=== PATIENT | male | born 1960 | race Caucasian/White ===

== ENCOUNTER 2017-05-14 18:31 | Emergency (ER) | payer MEDICAID ==
[~2017-05-14] VITALS: Ht 162.6 cm; Wt 50.0 kg
[2017-05-14] MEDS ORDERED: PLEASE ENTER ALLERGIES MC SCH (19:00)
[2017-05-14] MEDS ORDERED: IBUPROFEN 200 MG TABLET PO ONE (19:00)
[2017-05-14] MEDS ORDERED: PLEASE ENTER HEIGHT AND WEIGHT MC SCH (19:00)
[2017-05-14] MEDS ORDERED: IBUPROFEN 200 MG TABLET ONE (19:21)
[2017-05-14 19:39] VITALS: BP 121/86
== END 2017-05-14 21:04 | disposition home or self-care (01) ==
LOC: ED 20:44
DX: S70.11XA Contusion of right thigh, initial encounter (principal); I10 Essential (primary) hypertension; E11.9 Type 2 diabetes mellitus without complications; Y93.89 Activity, other specified; V98.8XXA Other specified transport accidents, initial encounter; Y99.2 Volunteer activity; Y92.89 Other specified places as the place of occurrence of the external cause; Y99.8 Other external cause status; Z59.0 Homelessness
CPT/HCPCS: 72170; 99284

== ENCOUNTER 2020-01-01 14:43 | Emergency (ER) | payer MEDICAID ==
[~2020-01-01] VITALS: Ht 162.6 cm; Wt 50.0 kg
--- NOTE | 2020-01-01 15:32 | NUR ---
PT TO ROOM FROM JOHN RUIZ.
--- NOTE | 2020-01-01 16:02 | NUR ---
PT LAYING ON GURNEY COMFORTABLY WITH TV ON, REFUSING BP & C-COLLAR- PA AWARE, AKING FOR FOOD, RESPONDS APPROP TO STAFF, NAD, COMFORT MEASURES PROVIDED, CALL LIGHT WITHIN REACH.
[2020-01-01 16:12] VITALS: BP 114/80
[2020-01-01 16:42] LABS: ALBUMIN 3.7 g/dL (3.4-5.0); ANION GAP 15 mmol/L (5-15); BASOPHILS % (AUTO) 2 % (0-1); CALCIUM 8.3 mg/dL (8.5-10.1); CHLORIDE 99 mmol/L (98-107); EOSINOPHILS % (AUTO) 0 % (1-7); LYMPHOCYTES % (AUTO) 34 % (22-44); MEAN CORPUSCULAR HEMOGLOBIN 28.4 pg (27.5-34.5); MEAN CORPUSCULAR HGB CONC 32.7 g/dL (33.2-36.2); MEAN PLATELET VOLUME 6.2 fL (7.4-10.4); MONOCYTES % (AUTO) 7 % (2-9); NEUTROPHILS % (AUTO) 57 % (42-75); PLATELET COUNT 411 x10^3/uL (130-400); RED BLOOD COUNT 3.95 x10^6/uL (4.38-5.82); RED CELL DISTRIBUTION WIDTH 19.9 % (9.4-14.8)
[2020-01-01 16:47] LABS: ALANINE AMINOTRANSFERASE 54 U/L (12-78); ALKALINE PHOSPHATASE 82 U/L (45-117); BILIRUBIN,TOTAL 0.3 mg/dL (0.2-1.0); CREATININE 0.62 mg/dL (0.7-1.3); TOTAL PROTEIN 7.8 g/dL (6.4-8.2)
--- NOTE | 2020-01-01 17:05 | NUR ---
PT UPRIGHT ON GURNEY WITH TV ON, FOOD TRAY GIVEN, RESPONDS APPROP TO STAFF, NAD, COMFORT MEASURES PROVIDED, CALL LIGHT WITHIN REACH.
[2020-01-01 17:32] LABS: ANISOCYTOSIS 1+; MD MORPH REVIEW ONLY; OVALOCYTES 1+
[2020-01-01 17:33] LABS: <PLATELET ESTIMATE> INCREASED; <PLT MORPHOLOGY> NORMAL PLT MORPH; POLYCHROMASIA 1+
--- NOTE | 2020-01-01 18:00 | NUR ---
PT RESTING ON GURNEY WITH EYES CLOSED & TV ON, RESPONDS APPROP TO STAFF, NAD, COMFORT MEASURES PROVIDED, CALL LIGHT WITHIN REACH. [employer] CALLED TO TRY TO FIND CLOTHING FOR PT TO DC IN- WILL DELIVER IF ANY.
--- NOTE | 2020-01-01 19:07 | NUR ---
REPORT GIVEN TO MANISH
--- NOTE | 2020-01-01 19:08 | NUR ---
Report received from MIKKI Leavitt. This RN to assume care. FS to be rechecked. Awaiting clothes for patient.
[2020-01-01] MEDS ORDERED: DEXTROSE 50%, 50ML SYRINGE ONE (19:59)
[2020-01-01] MEDS ORDERED: DEXTROSE 50%, 50ML SYRINGE IVPush ONE (20:00)
[2020-01-01] MEDS ORDERED: SODIUM CHLORIDE FLUSH 10ML SYR IVF ONE (20:00)
--- NOTE | 2020-01-01 20:09 | NUR ---
Patient ate entire meal tray; FS 74 afterward. ERP to order D50. Patient refusing IV with D50. Patient to be d/c.
--- NOTE | 2020-01-01 20:37 | NUR ---
Provided shorts to patient. Discharge instructions given. All questions and concerns addressed. Patient ambulatory with a steady gait. Belongings with patient.
== END 2020-01-01 20:38 | disposition home or self-care (01) ==
LOC: ED 16:52
DX: E11.65 Type 2 diabetes mellitus with hyperglycemia (principal); F10.129 Alcohol abuse with intoxication, unspecified; M54.2 Cervicalgia; Y90.9 Presence of alcohol in blood, level not specified; I10 Essential (primary) hypertension; F17.200 Nicotine dependence, unspecified, uncomplicated
CPT/HCPCS: 36415; 70450; 72125; 80053; 80307; 82962; 83690; 85025; 99285

== ENCOUNTER 2020-01-24 13:27 | Inpatient (IN) | payer MEDICAID ==
[~2020-01-24] VITALS: Ht 160 cm; Wt 62.4 kg
--- NOTE | 2020-01-24 13:38 | NUR ---
PATIENT CURRENTLY IN DECON ROOM. PATIENT BIB [facility] WITH CHIEF C/O "FEELING SICK." PER EMS PATIENT WAS PICKED UP FROM HIS APARTMENT ON [address] [facility], PATIENT IS BEING EVICTED PER EMS, AND WHEN THEY ENTERED HIS APARTMENT THERE WAS VOMIT AND FECES EVERYWHERE. [facility]. PATIENT IS A&OX4, HR 120, 99% SPO2, PATIENT REFUSED TO HAVE BP TAKEN.
[2020-01-24] MEDS ORDERED: ONDANSETRON ODT 4 MG PO ONE (15:13)
[2020-01-24] MEDS ORDERED: ONDANSETRON ODT 4 MG ONE (15:14)
--- NOTE | 2020-01-24 15:33 | NUR ---
PATIENT MEDICATED PER [facility], PATIENT STATES HE WANTS TO STOP DRINKING AND GET HELP. NADN, PATIENT CONNECTED TO ARCHAEOLOGY PROFESSOR, SIDE RAILS UP X2, CALL LIGHT WITHIN REACH.
--- NOTE | 2020-01-24 17:21 | NUR ---
PATIENT HAD LOOSE, WATERY BOWEL MOVEMENT, CLEANED PATIENT UP. NADN, CONNECTED TO CARDICA MONITOR, SIDE RAILS UP X2, CALL LIGHT WITHIN REACH.
--- NOTE | 2020-01-24 17:44 | NUR ---
SHIPS OR BARGES LOADER AT BEDSIDE.
[2020-01-24 18:08] LABS: ALBUMIN 3.4 g/dL (3.4-5.0); ANION GAP 22 mmol/L (5-15); CALCIUM 7.8 mg/dL (8.5-10.1); CHLORIDE 89 mmol/L (98-107)
[2020-01-24 18:11] LABS: ALANINE AMINOTRANSFERASE 25 U/L (12-78); ALKALINE PHOSPHATASE 104 U/L (45-117); BILIRUBIN,TOTAL 1.1 mg/dL (0.2-1.0); CREATININE 0.51 mg/dL (0.7-1.3); TOTAL PROTEIN 7.2 g/dL (6.4-8.2)
--- NOTE | 2020-01-24 18:19 | NUR ---
PATIENT SITTING UP IN GURNEY, SMALL AMOUNT OF WATER PROVIDED TO PATIENT, CONNECTED TO VOCATIONAL EVALUATOR, NADN, SIDE RAILS UP X2, CALL LIGHT WITHIN REACH.
[2020-01-24 18:53] LABS: BASOPHILS % (AUTO) 1 % (0-1); EOSINOPHILS % (AUTO) 0 % (1-7); LYMPHOCYTES % (AUTO) 9 % (22-44); MEAN CORPUSCULAR HGB CONC 32.9 g/dL (33.2-36.2); MEAN PLATELET VOLUME 6.7 fL (7.4-10.4); MONOCYTES % (AUTO) 12 % (2-9); NEUTROPHILS % (AUTO) 79 % (42-75); PLATELET COUNT 136 x10^3/uL (130-400); RED BLOOD COUNT 4.31 x10^6/uL (4.38-5.82); RED CELL DISTRIBUTION WIDTH 20.7 % (9.4-14.8)
[2020-01-24 18:54] LABS: MD NO
--- NOTE | 2020-01-24 19:43 | NUR ---
PATIENT SITTING UP IN GURNEY, CONNECTED TO LICENSED MASS REAL ESTATE APPRAISER, NADN, VSS, SIDE RAILS UP X2, CALL LIGHT WITHIN REACH.
--- NOTE | 2020-01-24 21:32 | NUR ---
PATIENT REFUSING TO WALK AT THIS TIME, STATING "I'M TOO WEAK."
--- NOTE | 2020-01-24 21:40 | NUR ---
ERMD AT BEDSIDE TO DISCUSS POC.
[2020-01-24] MEDS ORDERED: ONDANSETRON 2MG/ML, 2ML IVPush ONE (22:30)
[2020-01-24] MEDS ORDERED: FAMOTIDINE 20 MG/2 ML IV ONE (22:30)
[2020-01-24] MEDS ORDERED: SODIUM CHLORIDE 0.9% 1,000ML IVBOLUS ONE (22:30)
[2020-01-24] MEDS ORDERED: SODIUM CHLORIDE FLUSH 10ML SYR IVF ONE (22:30)
[2020-01-24] MEDS ORDERED: POTASSIUM CHLORIDE 20 MEQ TAB.ER.PRT ONE (22:58)
[2020-01-24] MEDS ORDERED: ONDANSETRON 2MG/ML, 2ML ONE (22:58)
[2020-01-24] MEDS ORDERED: FAMOTIDINE 20 MG/2 ML ONE (22:58)
[2020-01-24] MEDS ORDERED: LABETALOL 5MG/ML, 20ML IVPush PRN (23:00)
[2020-01-24] MEDS ORDERED: POTASSIUM CHLORIDE 20 MEQ TAB.ER.PRT PO ONE (23:00)
[2020-01-24] MEDS ORDERED: POTASSIUM CHLORIDE 20 MEQ, MAGNESIUM SULFATE 1 GM, THIAMINE 200 MG, FOLIC ACID 1 MG, MV... IV SCH (23:00)
[2020-01-24] MEDS ORDERED: LORazepam 2 MG/ML, 1ML IV PRN ×2 (23:00)
[2020-01-24] MEDS ORDERED: HEPARIN 5,000 UNITS/ML, 1ML ONE (23:11)
[2020-01-24] MEDS ORDERED: LORazepam 2 MG/ML, 1ML ONE (23:13)
[2020-01-24] MEDS: LORazepam 2 MG/ML, 1ML IV PRN (23:14)
[2020-01-24] MEDS: HEPARIN 5,000 UNITS/ML, 1ML SQ SCH (23:14)
--- NOTE | 2020-01-24 23:37 | NUR ---
PATIENT MEDICATED PER [facility], PATIENT SOILED, CLEANED UP AND WOUND DRESSING APPLIED TO LEFT BUTTOCKS. NADN, VSS, SIDE RAILS UP X2, CALL LIGHT WITHIN REACH.
[2020-01-24 23:45] LABS: ALANINE AMINOTRANSFERASE 24 U/L (12-78); ALBUMIN 3.1 g/dL (3.4-5.0); ANION GAP 19 mmol/L (5-15); CALCIUM 7.3 mg/dL (8.5-10.1); CHLORIDE 90 mmol/L (98-107); CREATININE 0.47 mg/dL (0.7-1.3)
[2020-01-24 23:47] LABS: ALKALINE PHOSPHATASE 93 U/L (45-117); BILIRUBIN,TOTAL 1.1 mg/dL (0.2-1.0); TOTAL PROTEIN 6.7 g/dL (6.4-8.2)
[2020-01-24 23:49] LABS: BASOPHILS % (AUTO) 1 % (0-1); EOSINOPHILS % (AUTO) 0 % (1-7); LYMPHOCYTES % (AUTO) 12 % (22-44); MEAN CORPUSCULAR HEMOGLOBIN 28.1 pg (27.5-34.5); MEAN CORPUSCULAR HGB CONC 33.2 g/dL (33.2-36.2); MONOCYTES % (AUTO) 13 % (2-9); NEUTROPHILS % (AUTO) 74 % (42-75); PLATELET COUNT 134 x10^3/uL (130-400); RED BLOOD COUNT 3.87 x10^6/uL (4.38-5.82); RED CELL DISTRIBUTION WIDTH 20.8 % (9.4-14.8)
--- NOTE | 2020-01-24 23:56 | NUR ---
REPORT GIVEN TO MIKKI CORREA FOR TRANSFER OF PATIENT CARE.
[2020-01-24 23:57] LABS: INTERNATIONAL NORMALIZED RATIO 1.11 (0.93-1.1); PROTHROMBIN TIME 11.8 Seconds (9.6-11.5)
[2020-01-24 23:58] LABS: MD NO
--- NOTE | 2020-01-25 00:58 | NUR ---
PT RESTING WITH EYES CLOSED, NAD NOTED AT THIS TIME, WILL CONTINUE TO MONITOR.
--- NOTE | 2020-01-25 02:04 | NUR ---
REPORT GIVEN TO MIKKI WALKER.
[2020-01-25 04:31] VITALS: BP 114/76
[2020-01-25] MEDS: LORazepam 2 MG/ML, 1ML IV PRN ×3 (06:22→20:56)
[2020-01-25] MEDS: HEPARIN 5,000 UNITS/ML, 1ML SQ SCH (06:22)
[2020-01-25 06:23] LABS: BASOPHILS % (AUTO) 1 % (0-1); EOSINOPHILS % (AUTO) 0 % (1-7); LYMPHOCYTES % (AUTO) 19 % (22-44); MEAN CORPUSCULAR HEMOGLOBIN 28.2 pg (27.5-34.5); MEAN CORPUSCULAR HGB CONC 32.7 g/dL (33.2-36.2); MEAN PLATELET VOLUME 7.1 fL (7.4-10.4); MONOCYTES % (AUTO) 13 % (2-9); NEUTROPHILS % (AUTO) 66 % (42-75); PLATELET COUNT 124 x10^3/uL (130-400); RED CELL DISTRIBUTION WIDTH 20.8 % (9.4-14.8)
[2020-01-25 06:24] LABS: MD NO
[2020-01-25 06:26] LABS: ALBUMIN 2.9 g/dL (3.4-5.0); ANION GAP 11 mmol/L (5-15); CALCIUM 7.2 mg/dL (8.5-10.1); CHLORIDE 97 mmol/L (98-107)
[2020-01-25 06:30] LABS: ALANINE AMINOTRANSFERASE 20 U/L (12-78); ALKALINE PHOSPHATASE 84 U/L (45-117); BILIRUBIN,TOTAL 0.7 mg/dL (0.2-1.0); CREATININE 0.76 mg/dL (0.7-1.3); TOTAL PROTEIN 6.2 g/dL (6.4-8.2)
[2020-01-25 07:56] VITALS: BP 112/75
[2020-01-25] MEDS ORDERED: MAGNESIUM SULFATE PMX 2GM/50ML 50 ML IV ONE ×2 (09:30→19:00)
[2020-01-25] MEDS ORDERED: THIAMINE 200 MG, MVI ADULT 10 ML, FOLIC ACID 1 MG in D5%-0.9% NACL 1,000 ML IV SCH ×2 (09:30→23:00)
[2020-01-25] MEDS ORDERED: MAGNESIUM SULFATE PMX 4GM/100M 100 ML IVPB ONE (10:00)
[2020-01-25 12:02] LABS: ANION GAP 11 mmol/L (5-15); CALCIUM 7.6 mg/dL (8.5-10.1); CHLORIDE 97 mmol/L (98-107); CREATININE 0.72 mg/dL (0.7-1.3)
[2020-01-25 12:15] VITALS: BP 139/70
[2020-01-25] MEDS: CHLORDIAZEPOXIDE 25 MG CAPSULE PO SCH ×3 (12:23→22:45)
[2020-01-25] MEDS: ENOXAPARIN 40 MG/0.4 ML SQ SCH (12:23)
[2020-01-25] MEDS: ONDANSETRON 2MG/ML, 2ML IVPush PRN ×2 (13:44→20:56)
[2020-01-25 20:10] VITALS: BP 87/62
[2020-01-25] MEDS: MAGNESIUM OXIDE 400 MG TABLET PO SCH (20:43)
[2020-01-26] VITALS (7 sets, daily range): BP systolic 93–122; BP diastolic 48–78
[2020-01-26] MEDS: LORazepam 2 MG/ML, 1ML IV PRN ×5 (00:03→23:19)
[2020-01-26] MEDS ORDERED: SODIUM CHLORIDE 0.9%, 500ML IVBOLUS ONE (01:00)
[2020-01-26 03:04] LABS: BASOPHILS % (AUTO) 0 % (0-1); EOSINOPHILS % (AUTO) 0 % (1-7); LYMPHOCYTES % (AUTO) 8 % (22-44); MEAN CORPUSCULAR HEMOGLOBIN 28.1 pg (27.5-34.5); MEAN CORPUSCULAR HGB CONC 33.1 g/dL (33.2-36.2); MEAN PLATELET VOLUME 7.3 fL (7.4-10.4); MONOCYTES % (AUTO) 4 % (2-9); NEUTROPHILS % (AUTO) 87 % (42-75); PLATELET COUNT 101 x10^3/uL (130-400); RED CELL DISTRIBUTION WIDTH 20.5 % (9.4-14.8)
[2020-01-26 03:11] LABS: ALANINE AMINOTRANSFERASE 17 U/L (12-78); ALBUMIN 2.5 g/dL (3.4-5.0); ANION GAP 6 mmol/L (5-15); CALCIUM 7.2 mg/dL (8.5-10.1); CHLORIDE 98 mmol/L (98-107); CREATININE 0.47 mg/dL (0.7-1.3)
[2020-01-26 03:13] LABS: ALKALINE PHOSPHATASE 71 U/L (45-117); BILIRUBIN,TOTAL 0.4 mg/dL (0.2-1.0); TOTAL PROTEIN 5.5 g/dL (6.4-8.2)
[2020-01-26 03:29] LABS: MD NO
[2020-01-26 03:53] LABS: MICROSCOPIC NOT IND
[2020-01-26] MEDS ORDERED: POTASSIUM CHLORIDE 40 MEQ in SODIUM CHLORIDE 0.9% 500 ML IV ONE (07:00)
[2020-01-26] MEDS: ENOXAPARIN 40 MG/0.4 ML SQ SCH (09:38)
[2020-01-26] MEDS: MAGNESIUM OXIDE 400 MG TABLET PO SCH ×2 (09:39→21:10)
[2020-01-26] MEDS: K-PHOS NEUTRAL 250MG TAB PO SCH ×3 (10:00→21:09)
[2020-01-26] MEDS ORDERED: POTASSIUM CHLORIDE 20 MEQ TAB.ER.PRT PO ONE (10:00)
[2020-01-26] MEDS: ONDANSETRON 2MG/ML, 2ML IVPush PRN ×2 (13:43→20:10)
[2020-01-26 17:13] LABS: BASOPHILS % (AUTO) 1 % (0-1); EOSINOPHILS % (AUTO) 0 % (1-7); LYMPHOCYTES % (AUTO) 9 % (22-44); MEAN CORPUSCULAR HEMOGLOBIN 28.4 pg (27.5-34.5); MEAN CORPUSCULAR HGB CONC 32.5 g/dL (33.2-36.2); MEAN PLATELET VOLUME 7.4 fL (7.4-10.4); MONOCYTES % (AUTO) 5 % (2-9); NEUTROPHILS % (AUTO) 85 % (42-75); PLATELET COUNT 105 x10^3/uL (130-400); RED BLOOD COUNT 2.86 x10^6/uL (4.38-5.82); RED CELL DISTRIBUTION WIDTH 20.7 % (9.4-14.8)
[2020-01-26 17:16] LABS: MD NO
[2020-01-26 17:21] LABS: CALCIUM 7.5 mg/dL (8.5-10.1); CREATININE 0.35 mg/dL (0.7-1.3)
[2020-01-26 17:30] LABS: ANION GAP 4 mmol/L (5-15); CHLORIDE 103 mmol/L (98-107)
[2020-01-26] MEDS ORDERED: FUROSEMIDE 20 MG/2 ML IV ONE ×2 (18:30→21:30)
[2020-01-26] MEDS ORDERED: GUAIFENESIN/DM 200-20MG, 10ML UDC PO PRN (23:30)
[2020-01-27 00:49] VITALS: BP 101/65
[2020-01-27] MEDS ORDERED: AZITHROMYCIN 500 MG in SODIUM CHLORIDE 0.9% 250 ML IV SCH (01:00)
[2020-01-27] MEDS ORDERED: CEFTRIAXONE PMX 1GM/50ML 50 ML IV SCH (01:00)
[2020-01-27] MEDS: LORazepam 2 MG/ML, 1ML IV PRN ×2 (01:39→03:47)
[2020-01-27 05:28] LABS: ANION GAP 5 mmol/L (5-15); CALCIUM 8.1 mg/dL (8.5-10.1); CHLORIDE 99 mmol/L (98-107); CREATININE 0.51 mg/dL (0.7-1.3)
[2020-01-27 05:41] LABS: MEAN CORPUSCULAR HGB CONC 33.3 g/dL (33.2-36.2); MEAN PLATELET VOLUME 7.7 fL (7.4-10.4); PLATELET COUNT 124 x10^3/uL (130-400); RED BLOOD COUNT 2.81 x10^6/uL (4.38-5.82); RED CELL DISTRIBUTION WIDTH 20.5 % (9.4-14.8)
[2020-01-27 06:26] LABS: MD YES
[2020-01-27 06:31] LABS: BAND#(MANUAL) 0.83 x10^3/uL; BANDS%(MANUAL) 36 % (0-7); LYMPH#(MANUAL) 0.53 x10^3/uL (1-3.4); LYMPHS% (MANUAL) 23 % (22-44); METAMYELOCYTES# (MANUAL) 0.12 x10^3/uL (0-0); METAMYELOCYTES% (MANUAL) 5 % (0-1); MONOS#(MANUAL) 0.14 x10^3/uL (0.3-2.7); MONOS% (MANUAL) 6 % (2-9); SEG#(MANUAL) 0.69 x10^3/uL (1.8-6.8); SEGS% (MANUAL) 30 % (42-75)
[2020-01-27 06:35] LABS: ANISOCYTOSIS 1+; OVALOCYTES 1+
[2020-01-27 06:36] LABS: POLYCHROMASIA 1+
[2020-01-27 06:37] LABS: <PLATELET ESTIMATE> DECREASED; <PLT MORPHOLOGY> NORMAL PLT MORPH; TOXIC GRAN 1+
[2020-01-27 08:16] VITALS: BP 97/61
[2020-01-27] MEDS: THIAMINE 100MG TABLET PO SCH (09:00)
[2020-01-27] MEDS: K-PHOS NEUTRAL 250MG TAB PO SCH ×3 (09:00→21:17)
[2020-01-27] MEDS: MAGNESIUM OXIDE 400 MG TABLET PO SCH ×2 (09:00→21:17)
[2020-01-27] MEDS: ENOXAPARIN 40 MG/0.4 ML SQ SCH (10:45)
[2020-01-27 12:57] VITALS: BP 98/68
[2020-01-27] MEDS ORDERED: FUROSEMIDE 40 MG/4 ML IV ONE (15:00)
[2020-01-27 15:05] LABS: MICROSCOPIC INDICATED
[2020-01-27 15:15] VITALS: BP 92/61
[2020-01-27] MEDS: ERTAPENEM 1 GM in SODIUM CHLORIDE 0.9% 50 ML IV SCH (16:21)
[2020-01-27] MEDS ORDERED: SODIUM CHLORIDE 0.9%, 250ML IVBOLUS ONE (19:30)
[2020-01-27 20:48] VITALS: BP 87/45
[2020-01-27] MEDS: SODIUM CHLORIDE 0.9% 500 ML IV SCH ×5 (22:25→23:34)
[2020-01-27 22:27] VITALS: BP 91/48
[2020-01-28] MEDS: SODIUM CHLORIDE 0.9% 500 ML IV SCH (00:05)
[2020-01-28 02:30] VITALS: BP 90/46
[2020-01-28 05:53] LABS: MEAN CORPUSCULAR HEMOGLOBIN 28.8 pg (27.5-34.5); MEAN PLATELET VOLUME 7.6 fL (7.4-10.4); PLATELET COUNT 128 x10^3/uL (130-400); RED BLOOD COUNT 2.57 x10^6/uL (4.38-5.82); RED CELL DISTRIBUTION WIDTH 21.1 % (9.4-14.8)
[2020-01-28 05:55] LABS: ANION GAP 5 mmol/L (5-15); CALCIUM 7.8 mg/dL (8.5-10.1); CHLORIDE 102 mmol/L (98-107)
[2020-01-28 05:59] LABS: ALANINE AMINOTRANSFERASE 12 U/L (12-78); ALKALINE PHOSPHATASE 55 U/L (45-117); BILIRUBIN,TOTAL 0.7 mg/dL (0.2-1.0); CREATININE 0.38 mg/dL (0.7-1.3); TOTAL PROTEIN 5.5 g/dL (6.4-8.2)
[2020-01-28 07:13] VITALS: BP 83/58
[2020-01-28] MEDS: methylPREDNISolone SOD SUCC 40 MG/ML IV SCH ×3 (07:30→20:34)
[2020-01-28] MEDS ORDERED: POTASSIUM CHLORIDE 40 MEQ in SODIUM CHLORIDE 0.9% 500 ML IV ONE (07:30)
[2020-01-28 08:22] LABS: MD YES
[2020-01-28 08:24] LABS: BASOS#(MANUAL) 0.06 x10^3/uL (0-0.1); BASOS% (MANUAL) 1 % (0-1); LYMPH#(MANUAL) 0.54 x10^3/uL (1-3.4); LYMPHS% (MANUAL) 9 % (22-44); MONOS#(MANUAL) 0.72 x10^3/uL (0.3-2.7); MONOS% (MANUAL) 12 % (2-9); MYELOCYTES# (MANUAL) 0.06 x10^3/uL (0-0); MYELOCYTES% (MANUAL) 1 % (0-0)
[2020-01-28 08:25] LABS: <PLATELET ESTIMATE> DECREASED; <PLT MORPHOLOGY> NORMAL PLT MORPH; ANISOCYTOSIS 1+; BAND#(MANUAL) 1.32 x10^3/uL; BANDS%(MANUAL) 22 % (0-7); OVALOCYTES 1+; POLYCHROMASIA 1+; SEGS% (MANUAL) 55 % (42-75); TOXIC GRAN 1+
[2020-01-28] MEDS: THIAMINE 100MG TABLET PO SCH (10:29)
[2020-01-28] MEDS: K-PHOS NEUTRAL 250MG TAB PO SCH ×3 (10:29→20:35)
[2020-01-28] MEDS: MAGNESIUM OXIDE 400 MG TABLET PO SCH ×2 (10:29→20:35)
[2020-01-28] MEDS: ONDANSETRON 2MG/ML, 2ML IVPush PRN ×2 (10:30→20:35)
[2020-01-28] MEDS: ENOXAPARIN 40 MG/0.4 ML SQ SCH (11:00)
[2020-01-28 12:12] VITALS: BP 94/65
[2020-01-28] MEDS: ERTAPENEM 1 GM in SODIUM CHLORIDE 0.9% 50 ML IV SCH (15:50)
[2020-01-28 18:57] VITALS: BP 95/64
[2020-01-28 23:01] VITALS: BP 102/69
[2020-01-29 00:38] VITALS: BP 98/60
[2020-01-29] MEDS: PANTOPRAZOLE 40 MG IV IVPush SCH ×2 (00:45→12:32)
[2020-01-29] MEDS: methylPREDNISolone SOD SUCC 40 MG/ML IV SCH ×4 (00:45→21:23)
[2020-01-29 06:50] VITALS: BP 102/67
[2020-01-29 07:21] LABS: MEAN CORPUSCULAR HEMOGLOBIN 28.8 pg (27.5-34.5); MEAN CORPUSCULAR HGB CONC 33.4 g/dL (33.2-36.2); MEAN PLATELET VOLUME 7.1 fL (7.4-10.4); PLATELET COUNT 177 x10^3/uL (130-400); RED CELL DISTRIBUTION WIDTH 20.8 % (9.4-14.8)
[2020-01-29 07:31] LABS: ALANINE AMINOTRANSFERASE 16 U/L (12-78); ALBUMIN 2.1 g/dL (3.4-5.0); ANION GAP 7 mmol/L (5-15); CALCIUM 8.2 mg/dL (8.5-10.1); CHLORIDE 97 mmol/L (98-107)
[2020-01-29 07:34] LABS: ALKALINE PHOSPHATASE 56 U/L (45-117); BILIRUBIN,TOTAL 0.4 mg/dL (0.2-1.0); CREATININE 0.44 mg/dL (0.7-1.3); TOTAL PROTEIN 6.2 g/dL (6.4-8.2)
[2020-01-29] MEDS: K-PHOS NEUTRAL 250MG TAB PO SCH ×3 (08:01→21:23)
[2020-01-29] MEDS: MAGNESIUM OXIDE 400 MG TABLET PO SCH ×2 (08:01→21:23)
[2020-01-29] MEDS: THIAMINE 100MG TABLET PO SCH (08:01)
[2020-01-29 08:48] LABS: MD YES
[2020-01-29 08:51] LABS: BAND#(MANUAL) 0.15 x10^3/uL; BANDS%(MANUAL) 5 % (0-7); LYMPH#(MANUAL) 0.39 x10^3/uL (1-3.4); LYMPHS% (MANUAL) 13 % (22-44); MONOS#(MANUAL) 0.06 x10^3/uL (0.3-2.7); MONOS% (MANUAL) 2 % (2-9); MYELOCYTES# (MANUAL) 0.03 x10^3/uL (0-0); MYELOCYTES% (MANUAL) 1 % (0-0); REACTIVE LYMPHS # (MANUAL) 0.03 x10^3/uL (0-0); REACTIVE LYMPHS % (MANUAL) 1 % (0-0); SEG#(MANUAL) 2.34 x10^3/uL (1.8-6.8); SEGS% (MANUAL) 78 % (42-75)
[2020-01-29 08:52] LABS: <PLATELET ESTIMATE> ADEQUATE; <PLT MORPHOLOGY> NORMAL PLT MORPH; ANISOCYTOSIS 1+; OVALOCYTES 1+; POLYCHROMASIA 1+; TOXIC GRAN 1+
[2020-01-29 12:06] VITALS: BP 105/72
[2020-01-29] MEDS: ENOXAPARIN 40 MG/0.4 ML SQ SCH (12:32)
[2020-01-29] MEDS: ERTAPENEM 1 GM in SODIUM CHLORIDE 0.9% 50 ML IV SCH (15:50)
[2020-01-29] MEDS ORDERED: PERMETHRIN CRM 5%, 60GM TP ONE (17:30)
[2020-01-29 19:21] VITALS: BP 104/72
[2020-01-29] MEDS: hydrOXyzine 50MG TABLET PO PRN (21:23)
[2020-01-30 00:29] VITALS: BP 102/62
[2020-01-30] MEDS: methylPREDNISolone SOD SUCC 40 MG/ML IV SCH ×4 (02:15→23:09)
[2020-01-30] MEDS: PANTOPRAZOLE 40MG TABLET PO SCH ×2 (06:05→16:12)
[2020-01-30 06:55] VITALS: BP 115/76
[2020-01-30] MEDS: K-PHOS NEUTRAL 250MG TAB PO SCH ×3 (10:40→23:09)
[2020-01-30] MEDS: MAGNESIUM OXIDE 400 MG TABLET PO SCH ×2 (10:40→23:09)
[2020-01-30] MEDS: THIAMINE 100MG TABLET PO SCH (10:40)
[2020-01-30] MEDS: ENOXAPARIN 40 MG/0.4 ML SQ SCH (11:20)
[2020-01-30 14:11] VITALS: BP 130/86
[2020-01-30] MEDS: ERTAPENEM 1 GM in SODIUM CHLORIDE 0.9% 50 ML IV SCH (15:02)
[2020-01-30 20:04] VITALS: BP 124/76
[2020-01-30] MEDS ORDERED: OMNIPAQUE 350 MG/ML, 100ML BOTTLE ONE (22:00)
[2020-01-30] MEDS: ONDANSETRON 2MG/ML, 2ML IVPush PRN (23:37)
[2020-01-31 02:53] VITALS: BP 125/82
[2020-01-31] MEDS: methylPREDNISolone SOD SUCC 40 MG/ML IV SCH ×3 (04:03→20:33)
[2020-01-31] MEDS: PANTOPRAZOLE 40MG TABLET PO SCH ×2 (05:32→15:24)
[2020-01-31] MEDS: THIAMINE 100MG TABLET PO SCH (08:12)
[2020-01-31] MEDS: MAGNESIUM OXIDE 400 MG TABLET PO SCH (08:12)
[2020-01-31] MEDS: K-PHOS NEUTRAL 250MG TAB PO SCH ×3 (08:12→20:33)
[2020-01-31] MEDS: ENOXAPARIN 40 MG/0.4 ML SQ SCH (08:13)
[2020-01-31 09:28] VITALS: BP 103/75
[2020-01-31] MEDS ORDERED: MAGNESIUM SULFATE PMX 4GM/100M 100 ML IVPB ONE (12:30)
[2020-01-31 13:29] VITALS: BP 124/77
[2020-01-31] MEDS: ERTAPENEM 1 GM in SODIUM CHLORIDE 0.9% 50 ML IV SCH (15:24)
[2020-01-31 18:39] VITALS: BP 118/77
[2020-01-31] MEDS: TRAZODONE 100MG TABLET PO SCH (22:32)
[2020-02-01 00:44] VITALS: BP 86/60
[2020-02-01] MEDS: PANTOPRAZOLE 40MG TABLET PO SCH ×2 (05:34→16:06)
[2020-02-01 06:44] LABS: ALBUMIN 2.3 g/dL (3.4-5.0); ANION GAP 4 mmol/L (5-15); CALCIUM 8.5 mg/dL (8.5-10.1); CHLORIDE 96 mmol/L (98-107)
[2020-02-01 06:54] LABS: ALANINE AMINOTRANSFERASE 20 U/L (12-78); ALKALINE PHOSPHATASE 74 U/L (45-117); BILIRUBIN,TOTAL 0.2 mg/dL (0.2-1.0); TOTAL PROTEIN 6.1 g/dL (6.4-8.2)
[2020-02-01 07:14] VITALS: BP 103/66
[2020-02-01] MEDS: THIAMINE 100MG TABLET PO SCH (08:22)
[2020-02-01] MEDS: K-PHOS NEUTRAL 250MG TAB PO SCH ×4 (08:22→20:48)
[2020-02-01] MEDS: methylPREDNISolone SOD SUCC 40 MG/ML IV SCH (08:22)
[2020-02-01] MEDS: ONDANSETRON 2MG/ML, 2ML IVPush PRN (08:30)
[2020-02-01] MEDS: ENOXAPARIN 40 MG/0.4 ML SQ SCH (11:13)
[2020-02-01 12:10] VITALS: BP 108/70
[2020-02-01] MEDS: ERTAPENEM 1 GM in SODIUM CHLORIDE 0.9% 50 ML IV SCH (14:53)
[2020-02-01 15:05] LABS: QUANTIFERON TB Ag1-NIL 0 (0.000-0.000)
[2020-02-01 20:00] VITALS: BP 112/62
[2020-02-01] MEDS: TRAZODONE 100MG TABLET PO SCH (20:48)
[2020-02-01] MEDS: ACETAMINOPHEN 325 MG TABLET PO PRN (21:31)
[2020-02-02 01:22] VITALS: BP 102/67
[2020-02-02] MEDS: ONDANSETRON 2MG/ML, 2ML IVPush PRN (05:49)
[2020-02-02] MEDS: PANTOPRAZOLE 40MG TABLET PO SCH ×2 (06:35→16:35)
[2020-02-02 08:20] VITALS: BP 86/54
[2020-02-02] MEDS: K-PHOS NEUTRAL 250MG TAB PO SCH ×2 (09:41→16:35)
[2020-02-02] MEDS: THIAMINE 100MG TABLET PO SCH (09:41)
[2020-02-02] MEDS: ENOXAPARIN 40 MG/0.4 ML SQ SCH (11:00)
[2020-02-02 12:05] VITALS: BP 97/65
[2020-02-02] MEDS: ERTAPENEM 1 GM in SODIUM CHLORIDE 0.9% 50 ML IV SCH (15:25)
[2020-02-02] MEDS ORDERED: METOCLOPRAMIDE 5 MG/ML, 2ML IVPush PRN (18:00)
[2020-02-02 19:26] VITALS: BP 98/68
[2020-02-02] MEDS: ACETAMINOPHEN 325 MG TABLET PO PRN (20:46)
[2020-02-02] MEDS: TRAZODONE 100MG TABLET PO SCH (20:46)
[2020-02-03 01:33] VITALS: BP 105/62
[2020-02-03] MEDS: PANTOPRAZOLE 40MG TABLET PO SCH ×2 (05:13→15:25)
[2020-02-03 07:10] VITALS: BP 96/62
[2020-02-03] MEDS: K-PHOS NEUTRAL 250MG TAB PO SCH ×3 (10:21→21:16)
[2020-02-03] MEDS: THIAMINE 100MG TABLET PO SCH (10:21)
[2020-02-03] MEDS: ENOXAPARIN 40 MG/0.4 ML SQ SCH (10:21)
[2020-02-03 12:31] VITALS: BP 94/61
[2020-02-03] MEDS: ONDANSETRON 2MG/ML, 2ML IVPush PRN (12:51)
[2020-02-03] MEDS: ERTAPENEM 1 GM in SODIUM CHLORIDE 0.9% 50 ML IV SCH (15:20)
[2020-02-03] MEDS: ACETAMINOPHEN 325 MG TABLET PO PRN ×2 (15:25→21:23)
[2020-02-03 20:00] VITALS: BP 91/63
[2020-02-03] MEDS: TRAZODONE 100MG TABLET PO SCH (21:16)
[2020-02-03] MEDS: hydrOXyzine 50MG TABLET PO PRN (21:23)
[2020-02-04 01:46] VITALS: BP 89/58
[2020-02-04 04:52] LABS: MEAN CORPUSCULAR HEMOGLOBIN 28.2 pg (27.5-34.5); MEAN CORPUSCULAR HGB CONC 32.3 g/dL (33.2-36.2); MEAN PLATELET VOLUME 6.5 fL (7.4-10.4); PLATELET COUNT 445 x10^3/uL (130-400); RED BLOOD COUNT 2.65 x10^6/uL (4.38-5.82); RED CELL DISTRIBUTION WIDTH 20.8 % (9.4-14.8)
[2020-02-04 04:55] LABS: ANION GAP 2 mmol/L (5-15); CALCIUM 8.4 mg/dL (8.5-10.1); CHLORIDE 102 mmol/L (98-107); CREATININE 0.48 mg/dL (0.7-1.3)
[2020-02-04] MEDS: PANTOPRAZOLE 40MG TABLET PO SCH ×2 (05:19→17:17)
[2020-02-04 06:29] LABS: MD YES
[2020-02-04 06:31] LABS: ANISOCYTOSIS 1+; BAND#(MANUAL) 0.06 x10^3/uL; BANDS%(MANUAL) 1 % (0-7); EOS#(MANUAL) 0.06 x10^3/uL (0.0-0.4); EOS% (MANUAL) 1 % (1-7); LYMPH#(MANUAL) 0.74 x10^3/uL (1-3.4); LYMPHS% (MANUAL) 13 % (22-44); METAMYELOCYTES# (MANUAL) 0.11 x10^3/uL (0-0); METAMYELOCYTES% (MANUAL) 2 % (0-1); MONOS#(MANUAL) 0.11 x10^3/uL (0.3-2.7); MONOS% (MANUAL) 2 % (2-9); MYELOCYTES# (MANUAL) 0.11 x10^3/uL (0-0); MYELOCYTES% (MANUAL) 2 % (0-0); POLYCHROMASIA 1+; SEGS% (MANUAL) 79 % (42-75)
[2020-02-04 06:32] LABS: <PLATELET ESTIMATE> INCREASED; <PLT MORPHOLOGY> NORMAL PLT MORPH; TOXIC GRAN 1+
[2020-02-04] MEDS: THIAMINE 100MG TABLET PO SCH (08:33)
[2020-02-04] MEDS: K-PHOS NEUTRAL 250MG TAB PO SCH ×3 (08:33→23:54)
[2020-02-04 08:50] VITALS: BP 87/58
[2020-02-04] MEDS: ONDANSETRON 2MG/ML, 2ML IVPush PRN (09:29)
[2020-02-04] MEDS: ENOXAPARIN 40 MG/0.4 ML SQ SCH (11:31)
[2020-02-04 15:34] VITALS: BP 102/63
[2020-02-04 19:36] VITALS: BP 97/64
[2020-02-04] MEDS: TRAZODONE 100MG TABLET PO SCH (20:05)
[2020-02-04] MEDS: ACETAMINOPHEN 325 MG TABLET PO PRN (20:05)
[2020-02-05 01:30] VITALS: BP 96/57
[2020-02-05] MEDS: ERTAPENEM 1 GM in SODIUM CHLORIDE 0.9% 50 ML IV SCH (02:58)
[2020-02-05] MEDS: PANTOPRAZOLE 40MG TABLET PO SCH ×2 (05:32→16:24)
[2020-02-05 06:32] VITALS: BP 98/63
[2020-02-05] MEDS: K-PHOS NEUTRAL 250MG TAB PO SCH ×3 (08:09→20:42)
[2020-02-05] MEDS: THIAMINE 100MG TABLET PO SCH ×2 (08:09→20:42)
[2020-02-05] MEDS: ACETAMINOPHEN 325 MG TABLET PO PRN ×3 (08:10→20:45)
[2020-02-05] MEDS: ENOXAPARIN 40 MG/0.4 ML SQ SCH (10:38)
[2020-02-05 12:02] VITALS: BP 93/59
[2020-02-05] MEDS: ONDANSETRON 2MG/ML, 2ML IVPush PRN (15:07)
[2020-02-05] MEDS: MULTIVITAMIN 1 TABLET PO SCH (16:26)
[2020-02-05] MEDS: FOLIC ACID 1 MG TABLET PO SCH (16:26)
[2020-02-05 18:38] VITALS: BP 96/64
[2020-02-05] MEDS: TRAZODONE 100MG TABLET PO SCH (20:42)
[2020-02-06 01:03] VITALS: BP 98/62
[2020-02-06] MEDS: PANTOPRAZOLE 40MG TABLET PO SCH ×2 (05:37→16:17)
[2020-02-06 07:28] VITALS: BP 95/66
[2020-02-06] MEDS: FOLIC ACID 1 MG TABLET PO SCH (08:36)
[2020-02-06] MEDS: K-PHOS NEUTRAL 250MG TAB PO SCH ×3 (08:36→19:51)
[2020-02-06] MEDS: MULTIVITAMIN 1 TABLET PO SCH (08:36)
[2020-02-06] MEDS: THIAMINE 100MG TABLET PO SCH ×2 (08:36→19:50)
[2020-02-06] MEDS: LACTOBACILLUS CHEW TABLET PO SCH ×3 (10:49→19:50)
[2020-02-06] MEDS: hydrOXyzine 50MG TABLET PO PRN (10:49)
[2020-02-06] MEDS: ENOXAPARIN 40 MG/0.4 ML SQ SCH (10:50)
[2020-02-06] MEDS: GUAIFENESIN ER 600 MG TABLET PO SCH ×2 (10:50→19:51)
[2020-02-06] MEDS: ONDANSETRON 2MG/ML, 2ML IVPush PRN (12:14)
[2020-02-06 12:28] VITALS: BP 101/67
--- NOTE | 2020-02-06 15:55 | NUR ---
Placed Green Activity sheet 02/06/20 - Per CM - no SNF benefit/medicaid Traditional. To help increase functional endurance/strength and ADL: Pt needs to be up to chair for 3meals/day Walk to bathroom with FWW, CGA and supplemental O2. Addendum: 02/06/20 at 1557 by CHERIE RAHMAN PT Amended: Links added.
[2020-02-06 19:23] VITALS: BP 102/72
[2020-02-06] MEDS: TRAZODONE 100MG TABLET PO SCH (19:51)
[2020-02-06] MEDS: ACETAMINOPHEN 325 MG TABLET PO PRN (19:51)
[2020-02-07 01:00] VITALS: BP 106/73
[2020-02-07] MEDS: PANTOPRAZOLE 40MG TABLET PO SCH ×2 (05:33→16:43)
[2020-02-07 05:48] LABS: MEAN CORPUSCULAR HEMOGLOBIN 28.7 pg (27.5-34.5); MEAN PLATELET VOLUME 5.9 fL (7.4-10.4); PLATELET COUNT 433 x10^3/uL (130-400); RED BLOOD COUNT 2.81 x10^6/uL (4.38-5.82); RED CELL DISTRIBUTION WIDTH 20.1 % (9.4-14.8)
[2020-02-07 06:00] LABS: ANION GAP 3 mmol/L (5-15); CALCIUM 8.6 mg/dL (8.5-10.1); CHLORIDE 101 mmol/L (98-107)
[2020-02-07 06:03] LABS: CREATININE 0.53 mg/dL (0.7-1.3)
[2020-02-07 06:17] LABS: MD YES
[2020-02-07 06:19] LABS: ANISOCYTOSIS 1+; BAND#(MANUAL) 0.07 x10^3/uL; BANDS%(MANUAL) 1 % (0-7); EOS#(MANUAL) 0.28 x10^3/uL (0.0-0.4); EOS% (MANUAL) 4 % (1-7); METAMYELOCYTES# (MANUAL) 0.14 x10^3/uL (0-0); METAMYELOCYTES% (MANUAL) 2 % (0-1); MONOS#(MANUAL) 0.55 x10^3/uL (0.3-2.7); MONOS% (MANUAL) 8 % (2-9); SEG#(MANUAL) 4.07 x10^3/uL (1.8-6.8); SEGS% (MANUAL) 59 % (42-75)
[2020-02-07 06:20] LABS: OVALOCYTES 1+; POLYCHROMASIA 1+
[2020-02-07 06:23] LABS: <PLATELET ESTIMATE> INCREASED
[2020-02-07 06:24] LABS: LYMPH#(MANUAL) 1.73 x10^3/uL (1-3.4); LYMPHS% (MANUAL) 25 % (22-44); MYELOCYTES# (MANUAL) 0.07 x10^3/uL (0-0); MYELOCYTES% (MANUAL) 1 % (0-0)
[2020-02-07 06:25] LABS: LARGE PLATELETS 1+
[2020-02-07 08:12] VITALS: BP 109/63
[2020-02-07] MEDS: ONDANSETRON 2MG/ML, 2ML IVPush PRN (10:58)
[2020-02-07] MEDS: MULTIVITAMIN 1 TABLET PO SCH (10:58)
[2020-02-07] MEDS: GUAIFENESIN ER 600 MG TABLET PO SCH ×2 (10:58→21:42)
[2020-02-07] MEDS: LACTOBACILLUS CHEW TABLET PO SCH ×3 (10:58→21:42)
[2020-02-07] MEDS: FOLIC ACID 1 MG TABLET PO SCH (10:58)
[2020-02-07] MEDS: ENOXAPARIN 40 MG/0.4 ML SQ SCH (10:59)
[2020-02-07] MEDS: K-PHOS NEUTRAL 250MG TAB PO SCH ×3 (10:59→21:42)
[2020-02-07] MEDS: THIAMINE 100MG TABLET PO SCH ×2 (10:59→21:42)
[2020-02-07 12:12] VITALS: BP 94/56
[2020-02-07 19:10] VITALS: BP 96/65
[2020-02-07] MEDS: TRAZODONE 100MG TABLET PO SCH (21:42)
[2020-02-07] MEDS: ACETAMINOPHEN 325 MG TABLET PO PRN (22:00)
[2020-02-08 01:38] VITALS: BP 95/74
[2020-02-08] MEDS: PANTOPRAZOLE 40MG TABLET PO SCH ×2 (05:18→15:30)
[2020-02-08 07:39] VITALS: BP 104/61
[2020-02-08] MEDS: FOLIC ACID 1 MG TABLET PO SCH (09:27)
[2020-02-08] MEDS: THIAMINE 100MG TABLET PO SCH ×2 (09:27→20:29)
[2020-02-08] MEDS: K-PHOS NEUTRAL 250MG TAB PO SCH ×3 (09:27→20:29)
[2020-02-08] MEDS: GUAIFENESIN ER 600 MG TABLET PO SCH ×2 (09:27→20:29)
[2020-02-08] MEDS: MULTIVITAMIN 1 TABLET PO SCH (09:27)
[2020-02-08] MEDS: LACTOBACILLUS CHEW TABLET PO SCH ×3 (09:27→20:29)
[2020-02-08] MEDS: ONDANSETRON 2MG/ML, 2ML IVPush PRN (10:27)
[2020-02-08] MEDS: ENOXAPARIN 40 MG/0.4 ML SQ SCH (10:27)
[2020-02-08 12:24] VITALS: BP 95/64
[2020-02-08 19:25] VITALS: BP 91/52
[2020-02-08] MEDS: TRAZODONE 100MG TABLET PO SCH (20:29)
[2020-02-08] MEDS: ACETAMINOPHEN 325 MG TABLET PO PRN (20:30)
[2020-02-09 00:55] VITALS: BP 100/65
[2020-02-09] MEDS: PANTOPRAZOLE 40MG TABLET PO SCH ×2 (05:58→18:21)
[2020-02-09 08:30] VITALS: BP 98/67
[2020-02-09] MEDS: K-PHOS NEUTRAL 250MG TAB PO SCH ×3 (09:15→19:54)
[2020-02-09] MEDS: THIAMINE 100MG TABLET PO SCH ×2 (09:15→19:54)
[2020-02-09] MEDS: LACTOBACILLUS CHEW TABLET PO SCH ×3 (09:15→19:54)
[2020-02-09] MEDS: GUAIFENESIN ER 600 MG TABLET PO SCH ×2 (09:15→19:54)
[2020-02-09] MEDS: FOLIC ACID 1 MG TABLET PO SCH (09:16)
[2020-02-09] MEDS: MULTIVITAMIN 1 TABLET PO SCH (09:16)
[2020-02-09] MEDS: ONDANSETRON 2MG/ML, 2ML IVPush PRN (10:39)
[2020-02-09] MEDS: ENOXAPARIN 40 MG/0.4 ML SQ SCH (10:40)
[2020-02-09] MEDS ORDERED: ONDANSETRON 4 MG TABLET PO PRN (11:30)
[2020-02-09 14:30] VITALS: BP 100/68
[2020-02-09 19:05] VITALS: BP 90/54
[2020-02-09] MEDS: TRAZODONE 100MG TABLET PO SCH (19:54)
[2020-02-09] MEDS: ACETAMINOPHEN 325 MG TABLET PO PRN (19:54)
[2020-02-10 02:48] VITALS: BP 101/57
[2020-02-10] MEDS: PANTOPRAZOLE 40MG TABLET PO SCH (05:39)
[2020-02-10 07:16] VITALS: BP 103/61
[2020-02-10] MEDS: GUAIFENESIN ER 600 MG TABLET PO SCH ×2 (09:14→20:00)
[2020-02-10] MEDS: THIAMINE 100MG TABLET PO SCH (09:14)
[2020-02-10] MEDS: LACTOBACILLUS CHEW TABLET PO SCH (09:14)
[2020-02-10] MEDS: FOLIC ACID 1 MG TABLET PO SCH (09:14)
[2020-02-10] MEDS: MULTIVITAMIN 1 TABLET PO SCH (09:14)
[2020-02-10] MEDS: K-PHOS NEUTRAL 250MG TAB PO SCH (09:15)
[2020-02-10] MEDS: ENOXAPARIN 40 MG/0.4 ML SQ SCH (11:00)
[2020-02-10 13:24] VITALS: BP 108/75
[2020-02-10] MEDS: ACETAMINOPHEN 325 MG TABLET PO PRN ×2 (15:06→20:00)
[2020-02-10 19:25] VITALS: BP 104/70
[2020-02-10] MEDS: TRAZODONE 100MG TABLET PO SCH (20:00)
[2020-02-11 01:40] VITALS: BP 111/72
[2020-02-11 06:14] LABS: CREATININE 0.53 mg/dL (0.7-1.3)
[2020-02-11 07:50] VITALS: BP 100/73
[2020-02-11] MEDS: MULTIVITAMIN 1 TABLET PO SCH (08:42)
[2020-02-11] MEDS: GUAIFENESIN ER 600 MG TABLET PO SCH ×2 (08:43→20:02)
[2020-02-11] MEDS: ENOXAPARIN 40 MG/0.4 ML SQ SCH (10:38)
[2020-02-11] MEDS: hydrOXyzine 50MG TABLET PO PRN (10:38)
[2020-02-11] MEDS ORDERED: HYDROCORTISONE OINT 1%, 28GM TP PRN (12:00)
[2020-02-11 13:03] VITALS: BP 103/71
[2020-02-11] MEDS: ACETAMINOPHEN 325 MG TABLET PO PRN (17:18)
[2020-02-11] MEDS: HYDROCORTISONE CRM 1%, 30GM TP PRN (17:19)
[2020-02-11 19:22] VITALS: BP 104/70
[2020-02-11] MEDS: TRAZODONE 100MG TABLET PO SCH (20:02)
[2020-02-12 01:23] VITALS: BP 117/72
[2020-02-12] MEDS: GUAIFENESIN ER 600 MG TABLET PO SCH ×3 (09:00→21:19)
[2020-02-12 09:19] VITALS: BP 122/82
[2020-02-12] MEDS: MULTIVITAMIN 1 TABLET PO SCH (09:43)
[2020-02-12] MEDS: ENOXAPARIN 40 MG/0.4 ML SQ SCH (09:44)
[2020-02-12 13:45] VITALS: BP 104/68
[2020-02-12] MEDS: HYDROCORTISONE CRM 1%, 30GM TP PRN (18:24)
[2020-02-12 20:13] VITALS: BP 115/73
[2020-02-12] MEDS: TRAZODONE 100MG TABLET PO SCH (21:18)
[2020-02-12] MEDS: ACETAMINOPHEN 325 MG TABLET PO PRN (21:18)
[2020-02-12] MEDS: PERMETHRIN CRM 5%, 60GM TP SCH (21:40)
[2020-02-13 01:12] VITALS: BP 108/65
[2020-02-13] MEDS: hydrOXyzine 50MG TABLET PO PRN ×2 (02:15→21:01)
[2020-02-13 08:13] VITALS: BP 95/64
[2020-02-13] MEDS: GUAIFENESIN ER 600 MG TABLET PO SCH ×2 (09:00→21:00)
[2020-02-13] MEDS: MULTIVITAMIN 1 TABLET PO SCH (10:03)
[2020-02-13] MEDS: ENOXAPARIN 40 MG/0.4 ML SQ SCH (12:18)
[2020-02-13 14:39] VITALS: BP 106/68
[2020-02-13 20:13] VITALS: BP 103/76
[2020-02-13] MEDS: ACETAMINOPHEN 325 MG TABLET PO PRN (21:01)
[2020-02-13] MEDS: TRAZODONE 100MG TABLET PO SCH (21:01)
[2020-02-13] MEDS: HYDROCORTISONE CRM 1%, 30GM TP PRN (21:43)
[2020-02-14 04:48] LABS: CREATININE 0.57 mg/dL (0.7-1.3)
[2020-02-14 06:52] VITALS: BP 97/70
[2020-02-14] MEDS: GUAIFENESIN ER 600 MG TABLET PO SCH ×2 (09:00→19:24)
[2020-02-14] MEDS: MULTIVITAMIN 1 TABLET PO SCH (09:11)
[2020-02-14] MEDS: HYDROCORTISONE CRM 1%, 30GM TP PRN ×2 (09:18→16:41)
[2020-02-14] MEDS: hydrOXyzine 50MG TABLET PO PRN ×2 (09:22→16:41)
[2020-02-14 12:18] VITALS: BP 112/73
[2020-02-14] MEDS: ENOXAPARIN 40 MG/0.4 ML SQ SCH (12:43)
[2020-02-14] MEDS: TRAZODONE 100MG TABLET PO SCH (19:23)
[2020-02-14 19:24] VITALS: BP 100/69
[2020-02-15 00:20] VITALS: BP 101/69
[2020-02-15] MEDS: hydrOXyzine 50MG TABLET PO PRN ×3 (01:52→14:56)
[2020-02-15] MEDS: HYDROCORTISONE CRM 1%, 30GM TP PRN ×2 (03:25→14:56)
[2020-02-15 08:00] VITALS: BP 100/71
[2020-02-15] MEDS: GUAIFENESIN ER 600 MG TABLET PO SCH ×2 (09:00→20:36)
[2020-02-15] MEDS: DIPHENHYDRAMINE 50 MG CAPSULE PO PRN ×2 (10:11→20:35)
[2020-02-15] MEDS: MULTIVITAMIN 1 TABLET PO SCH (10:11)
[2020-02-15] MEDS: ENOXAPARIN 40 MG/0.4 ML SQ SCH (11:26)
[2020-02-15] MEDS: DOCUSATE 100 MG CAPSULE PO PRN (12:19)
[2020-02-15 13:10] VITALS: BP 109/79
[2020-02-15 19:53] VITALS: BP 99/69
[2020-02-15] MEDS: TRAZODONE 100MG TABLET PO SCH (20:35)
[2020-02-15] MEDS: ACETAMINOPHEN 325 MG TABLET PO PRN (20:35)
[2020-02-16 00:19] VITALS: BP 98/61
[2020-02-16] MEDS: hydrOXyzine 50MG TABLET PO PRN ×3 (06:16→21:06)
[2020-02-16] MEDS: ACETAMINOPHEN 325 MG TABLET PO PRN ×3 (06:19→21:06)
[2020-02-16] MEDS: HYDROCORTISONE CRM 1%, 30GM TP PRN ×3 (06:31→18:12)
[2020-02-16] MEDS: GUAIFENESIN ER 600 MG TABLET PO SCH ×2 (09:00→21:06)
[2020-02-16] MEDS: DOCUSATE 100 MG CAPSULE PO PRN (09:42)
[2020-02-16] MEDS: MULTIVITAMIN 1 TABLET PO SCH (09:42)
[2020-02-16] MEDS: DIPHENHYDRAMINE 50 MG CAPSULE PO PRN ×2 (09:42→18:12)
[2020-02-16 10:33] VITALS: BP 100/69
[2020-02-16] MEDS: ENOXAPARIN 40 MG/0.4 ML SQ SCH (11:40)
[2020-02-16 15:16] VITALS: BP 103/70
[2020-02-16 18:54] VITALS: BP 102/61
[2020-02-16] MEDS: TRAZODONE 100MG TABLET PO SCH (21:05)
[2020-02-17 03:54] VITALS: BP 94/68
[2020-02-17 07:28] LABS: ANION GAP 4 mmol/L (5-15); CALCIUM 8.8 mg/dL (8.5-10.1); CHLORIDE 104 mmol/L (98-107); CREATININE 0.55 mg/dL (0.7-1.3)
[2020-02-17] MEDS: GUAIFENESIN ER 600 MG TABLET PO SCH ×2 (09:00→21:00)
[2020-02-17] MEDS: MULTIVITAMIN 1 TABLET PO SCH (09:33)
[2020-02-17 09:39] VITALS: BP 102/67
[2020-02-17] MEDS ORDERED: MAGNESIUM SULFATE PMX 2GM/50ML 50 ML IV ONE (11:30)
[2020-02-17] MEDS: ENOXAPARIN 40 MG/0.4 ML SQ SCH (11:53)
[2020-02-17] MEDS: PERMETHRIN CRM 5%, 60GM TP SCH (13:08)
[2020-02-17 13:55] VITALS: BP 97/69
[2020-02-17 18:40] VITALS: BP 97/66
[2020-02-17] MEDS: DIPHENHYDRAMINE 50 MG CAPSULE PO PRN (21:16)
[2020-02-17] MEDS: TRAZODONE 150MG TABLET PO SCH (21:16)
[2020-02-17] MEDS: ACETAMINOPHEN 325 MG TABLET PO PRN (21:16)
[2020-02-17] MEDS: HYDROCORTISONE CRM 1%, 30GM TP PRN (21:18)
[2020-02-18 01:05] VITALS: BP 96/63
[2020-02-18 05:52] LABS: ANION GAP 3 mmol/L (5-15); CALCIUM 8.9 mg/dL (8.5-10.1); CHLORIDE 106 mmol/L (98-107)
[2020-02-18 05:54] LABS: CREATININE 0.53 mg/dL (0.7-1.3)
[2020-02-18] MEDS: ACETAMINOPHEN 325 MG TABLET PO PRN ×3 (05:54→19:34)
[2020-02-18 07:27] VITALS: BP 89/68
[2020-02-18] MEDS: GUAIFENESIN ER 600 MG TABLET PO SCH ×2 (08:53→19:38)
[2020-02-18] MEDS: MULTIVITAMIN 1 TABLET PO SCH (08:54)
[2020-02-18] MEDS: ENOXAPARIN 40 MG/0.4 ML SQ SCH (12:00)
[2020-02-18] MEDS: DIPHENHYDRAMINE 50 MG CAPSULE PO PRN ×2 (12:09→19:34)
[2020-02-18 12:17] VITALS: BP 99/69
[2020-02-18] MEDS: ONDANSETRON 2MG/ML, 2ML IVPush PRN (13:42)
[2020-02-18] MEDS: HYDROCORTISONE CRM 1%, 30GM TP PRN (15:09)
[2020-02-18] MEDS: TRAZODONE 150MG TABLET PO SCH (19:38)
[2020-02-18 20:02] VITALS: BP 97/62
[2020-02-19 01:10] VITALS: BP 87/66
[2020-02-19 07:03] VITALS: BP 103/64
[2020-02-19] MEDS: MULTIVITAMIN 1 TABLET PO SCH (09:32)
[2020-02-19] MEDS: GUAIFENESIN ER 600 MG TABLET PO SCH ×2 (09:33→20:43)
[2020-02-19] MEDS: DIPHENHYDRAMINE 50 MG CAPSULE PO PRN ×2 (09:41→20:42)
[2020-02-19] MEDS: DOCUSATE 100 MG CAPSULE PO PRN (09:41)
[2020-02-19] MEDS: ACETAMINOPHEN 325 MG TABLET PO PRN ×2 (09:41→20:42)
[2020-02-19] MEDS: ENOXAPARIN 40 MG/0.4 ML SQ SCH (12:11)
[2020-02-19 13:07] VITALS: BP 96/69
[2020-02-19] MEDS: ONDANSETRON 2MG/ML, 2ML IVPush PRN (17:48)
[2020-02-19] MEDS: TRAZODONE 150MG TABLET PO SCH (20:42)
[2020-02-19 20:49] VITALS: BP 91/65
[2020-02-20 02:15] VITALS: BP 93/62
[2020-02-20 04:53] LABS: CREATININE 0.55 mg/dL (0.7-1.3)
[2020-02-20 07:07] VITALS: BP 89/71
[2020-02-20] MEDS: MULTIVITAMIN 1 TABLET PO SCH (09:00)
[2020-02-20] MEDS: GUAIFENESIN ER 600 MG TABLET PO SCH ×2 (09:00→21:00)
[2020-02-20] MEDS: DIPHENHYDRAMINE 50 MG CAPSULE PO PRN (10:03)
[2020-02-20] MEDS: ACETAMINOPHEN 325 MG TABLET PO PRN (10:03)
[2020-02-20 12:01] LABS: MEAN CORPUSCULAR HEMOGLOBIN 26.4 pg (27.5-34.5); MEAN CORPUSCULAR HGB CONC 32.3 g/dL (33.2-36.2); PLATELET COUNT 391 x10^3/uL (130-400); RED BLOOD COUNT 3.12 x10^6/uL (4.38-5.82); RED CELL DISTRIBUTION WIDTH 19.8 % (9.4-14.8)
[2020-02-20 12:05] LABS: ALBUMIN 3.2 g/dL (3.4-5.0); ANION GAP 4 mmol/L (5-15); CALCIUM 9.5 mg/dL (8.5-10.1); CHLORIDE 101 mmol/L (98-107)
[2020-02-20 12:10] LABS: ALANINE AMINOTRANSFERASE 24 U/L (12-78); ALKALINE PHOSPHATASE 72 U/L (45-117); BILIRUBIN,TOTAL 0.2 mg/dL (0.2-1.0); CREATININE 0.63 mg/dL (0.7-1.3); TOTAL PROTEIN 6.9 g/dL (6.4-8.2)
[2020-02-20] MEDS: ENOXAPARIN 40 MG/0.4 ML SQ SCH (12:25)
[2020-02-20 12:38] VITALS: BP 109/78
[2020-02-20 13:00] LABS: MD YES
[2020-02-20 13:05] LABS: EOS#(MANUAL) 0.31 x10^3/uL (0.0-0.4); EOS% (MANUAL) 5 % (1-7); LYMPH#(MANUAL) 1.77 x10^3/uL (1-3.4); LYMPHS% (MANUAL) 29 % (22-44); MONOS#(MANUAL) 0.85 x10^3/uL (0.3-2.7); MONOS% (MANUAL) 14 % (2-9); SEG#(MANUAL) 3.17 x10^3/uL (1.8-6.8); SEGS% (MANUAL) 52 % (42-75)
[2020-02-20 13:07] LABS: ANISOCYTOSIS 1+; POLYCHROMASIA 1+
[2020-02-20 13:08] LABS: <PLATELET ESTIMATE> INCREASED; <PLT MORPHOLOGY> NORMAL PLT MORPH; OVALOCYTES 1+
[2020-02-20] MEDS: HYDROCORTISONE CRM 1%, 30GM TP PRN (17:56)
[2020-02-20 19:48] VITALS: BP 100/72
[2020-02-20] MEDS: TRAZODONE 150MG TABLET PO SCH (21:04)
[2020-02-21 01:53] VITALS: BP 101/67
[2020-02-21] MEDS: GUAIFENESIN ER 600 MG TABLET PO SCH ×2 (07:11→20:30)
[2020-02-21] MEDS: DOCUSATE 100 MG CAPSULE PO PRN (07:36)
[2020-02-21] MEDS: DIPHENHYDRAMINE 50 MG CAPSULE PO PRN ×2 (07:36→17:39)
[2020-02-21] MEDS: MULTIVITAMIN 1 TABLET PO SCH (07:36)
[2020-02-21] MEDS: ACETAMINOPHEN 325 MG TABLET PO PRN ×2 (07:36→19:43)
[2020-02-21 09:00] VITALS: BP 105/75
[2020-02-21] MEDS ORDERED: POLYETHYLENE GLYCOL 17 GM PACKET NG SCH (12:00)
[2020-02-21] MEDS: SENNA/DOCUSATE TABLET PO SCH ×2 (12:00→20:28)
[2020-02-21] MEDS ORDERED: BISACODYL 10 MG SUPP PR PRN (12:00)
[2020-02-21] MEDS: ENOXAPARIN 40 MG/0.4 ML SQ SCH (12:27)
[2020-02-21 14:22] VITALS: BP 96/66
[2020-02-21] MEDS ORDERED: FLUO20TA25 PO (16:06)
[2020-02-21] MEDS: POLYETHYLENE GLYCOL 17 GM PACKET PO SCH ×2 (17:32→20:30)
[2020-02-21] MEDS: hydrOXyzine 50MG TABLET PO PRN (19:43)
[2020-02-21 19:45] VITALS: BP 104/70
[2020-02-21] MEDS: TRAZODONE 150MG TABLET PO SCH (20:28)
[2020-02-21] MEDS: CALCIUM CARBONATE 500 MG TAB.CHEW PO PRN (20:28)
[2020-02-21] MEDS: HYDROCORTISONE CRM 1%, 30GM TP PRN (20:30)
[2020-02-22 03:47] VITALS: BP 101/69
[2020-02-22 06:06] LABS: BASOPHILS % (AUTO) 1 % (0-1); EOSINOPHILS % (AUTO) 8 % (1-7); LYMPHOCYTES % (AUTO) 30 % (22-44); MEAN CORPUSCULAR HEMOGLOBIN 25.7 pg (27.5-34.5); MEAN CORPUSCULAR HGB CONC 31.7 g/dL (33.2-36.2); MEAN PLATELET VOLUME 6.7 fL (7.4-10.4); MONOCYTES % (AUTO) 17 % (2-9); NEUTROPHILS % (AUTO) 45 % (42-75); PLATELET COUNT 348 x10^3/uL (130-400); RED BLOOD COUNT 3.19 x10^6/uL (4.38-5.82); RED CELL DISTRIBUTION WIDTH 19.7 % (9.4-14.8)
[2020-02-22 06:16] LABS: ANION GAP 3 mmol/L (5-15); CHLORIDE 104 mmol/L (98-107); CREATININE 0.58 mg/dL (0.7-1.3)
[2020-02-22 06:43] LABS: MD SCAN
[2020-02-22 07:00] VITALS: BP 105/70
[2020-02-22] MEDS ORDERED: MAGNESIUM SULFATE PMX 4GM/100M 100 ML IVPB ONE (09:00)
[2020-02-22] MEDS: GUAIFENESIN ER 600 MG TABLET PO SCH ×2 (09:00→19:59)
[2020-02-22] MEDS: POLYETHYLENE GLYCOL 17 GM PACKET PO SCH ×3 (09:56→19:59)
[2020-02-22] MEDS: MULTIVITAMIN 1 TABLET PO SCH (09:57)
[2020-02-22] MEDS: SENNA/DOCUSATE TABLET PO SCH ×2 (09:57→19:59)
[2020-02-22] MEDS: FLUOXETINE HCL 20 MG CAPSULE PO SCH (09:57)
[2020-02-22] MEDS: ACETAMINOPHEN 325 MG TABLET PO PRN ×2 (11:05→18:24)
[2020-02-22] MEDS: DIPHENHYDRAMINE 50 MG CAPSULE PO PRN (11:06)
[2020-02-22] MEDS: ENOXAPARIN 40 MG/0.4 ML SQ SCH (11:07)
[2020-02-22 12:49] VITALS: BP 102/67
[2020-02-22] MEDS: HYDROCORTISONE CRM 1%, 30GM TP PRN (14:00)
[2020-02-22] MEDS: CALCIUM CARBONATE 500 MG TAB.CHEW PO PRN ×2 (16:18→19:59)
[2020-02-22 19:47] VITALS: BP 101/69
[2020-02-22] MEDS: TRAZODONE 150MG TABLET PO SCH (20:00)
[2020-02-23 01:07] VITALS: BP 102/69
[2020-02-23 07:22] LABS: ANION GAP 4 mmol/L (5-15); CALCIUM 9.3 mg/dL (8.5-10.1); CHLORIDE 103 mmol/L (98-107); CREATININE 0.65 mg/dL (0.7-1.3)
[2020-02-23 07:24] VITALS: BP 93/63
[2020-02-23] MEDS: GUAIFENESIN ER 600 MG TABLET PO SCH ×2 (07:42→19:53)
[2020-02-23] MEDS: CALCIUM CARBONATE 500 MG TAB.CHEW PO PRN (07:52)
[2020-02-23] MEDS: FLUOXETINE HCL 20 MG CAPSULE PO SCH (07:52)
[2020-02-23] MEDS: POLYETHYLENE GLYCOL 17 GM PACKET PO SCH ×3 (07:52→19:53)
[2020-02-23] MEDS: SENNA/DOCUSATE TABLET PO SCH ×2 (07:52→19:53)
[2020-02-23] MEDS: MULTIVITAMIN 1 TABLET PO SCH (07:52)
[2020-02-23] MEDS: DIPHENHYDRAMINE 50 MG CAPSULE PO PRN (09:52)
[2020-02-23] MEDS: ACETAMINOPHEN 325 MG TABLET PO PRN ×3 (09:52→19:53)
[2020-02-23] MEDS ORDERED: MAGNESIUM SULFATE PMX 4GM/100M 100 ML IV ONE (10:30)
[2020-02-23] MEDS: ENOXAPARIN 40 MG/0.4 ML SQ SCH (11:59)
[2020-02-23 13:00] VITALS: BP 112/74
[2020-02-23] MEDS: HYDROCORTISONE CRM 1%, 30GM TP PRN (17:06)
[2020-02-23] MEDS: hydrOXyzine 50MG TABLET PO PRN (17:06)
[2020-02-23 19:51] VITALS: BP 102/69
[2020-02-23] MEDS: MAGNESIUM OXIDE 400 MG TABLET PO SCH (19:53)
[2020-02-23] MEDS: TRAZODONE 150MG TABLET PO SCH (19:53)
[2020-02-24 01:39] VITALS: BP 107/71
[2020-02-24] MEDS: GUAIFENESIN ER 600 MG TABLET PO SCH (06:56)
[2020-02-24] MEDS: ACETAMINOPHEN 325 MG TABLET PO PRN ×2 (07:56→19:42)
[2020-02-24] MEDS: MAGNESIUM OXIDE 400 MG TABLET PO SCH ×2 (07:56→19:42)
[2020-02-24] MEDS: FLUOXETINE HCL 20 MG CAPSULE PO SCH (07:56)
[2020-02-24] MEDS: MULTIVITAMIN 1 TABLET PO SCH (07:56)
[2020-02-24] MEDS: DIPHENHYDRAMINE 50 MG CAPSULE PO PRN (07:56)
[2020-02-24] MEDS: POLYETHYLENE GLYCOL 17 GM PACKET PO SCH ×3 (07:56→19:42)
[2020-02-24] MEDS: SENNA/DOCUSATE TABLET PO SCH ×2 (07:56→19:42)
[2020-02-24 07:59] VITALS: BP 99/66
[2020-02-24] MEDS ORDERED: PERMETHRIN CRM 5%, 60GM TP ONE (08:00)
[2020-02-24] MEDS: ENOXAPARIN 40 MG/0.4 ML SQ SCH (12:19)
[2020-02-24 15:22] VITALS: BP 100/69
[2020-02-24] MEDS: TRAZODONE 150MG TABLET PO SCH (19:42)
[2020-02-24 19:43] VITALS: BP 113/73
[2020-02-25 03:14] VITALS: BP 97/62
[2020-02-25 06:35] VITALS: BP 104/68
[2020-02-25] MEDS: POLYETHYLENE GLYCOL 17 GM PACKET PO SCH ×3 (09:00→20:06)
[2020-02-25] MEDS: MAGNESIUM OXIDE 400 MG TABLET PO SCH ×2 (10:01→20:06)
[2020-02-25] MEDS: SENNA/DOCUSATE TABLET PO SCH ×2 (10:01→20:06)
[2020-02-25] MEDS: MULTIVITAMIN 1 TABLET PO SCH (10:01)
[2020-02-25] MEDS: FLUOXETINE HCL 20 MG CAPSULE PO SCH (10:02)
[2020-02-25] MEDS: ENOXAPARIN 40 MG/0.4 ML SQ SCH (12:16)
[2020-02-25 13:59] VITALS: BP 103/72
[2020-02-25] MEDS: ACETAMINOPHEN 325 MG TABLET PO PRN (14:50)
[2020-02-25] MEDS: CALCIUM CARBONATE 500 MG TAB.CHEW PO PRN ×2 (14:50→20:06)
[2020-02-25] MEDS: ONDANSETRON 2MG/ML, 2ML IVPush PRN (18:46)
[2020-02-25] MEDS: TRAZODONE 150MG TABLET PO SCH (20:05)
[2020-02-25 20:13] VITALS: BP 101/72
[2020-02-26 01:11] VITALS: BP 98/65
[2020-02-26 06:51] LABS: CREATININE 0.71 mg/dL (0.7-1.3)
[2020-02-26 07:16] VITALS: BP 100/69
[2020-02-26] MEDS: SENNA/DOCUSATE TABLET PO SCH ×2 (07:55→20:57)
[2020-02-26] MEDS: ACETAMINOPHEN 325 MG TABLET PO PRN ×3 (07:55→20:58)
[2020-02-26] MEDS: FLUOXETINE HCL 20 MG CAPSULE PO SCH (07:55)
[2020-02-26] MEDS: CALCIUM CARBONATE 500 MG TAB.CHEW PO PRN (07:56)
[2020-02-26] MEDS: MULTIVITAMIN 1 TABLET PO SCH (07:56)
[2020-02-26] MEDS: POLYETHYLENE GLYCOL 17 GM PACKET PO SCH ×3 (07:56→20:58)
[2020-02-26] MEDS: DIPHENHYDRAMINE 50 MG CAPSULE PO PRN ×2 (07:56→14:48)
[2020-02-26] MEDS: MAGNESIUM OXIDE 400 MG TABLET PO SCH ×2 (07:56→20:58)
[2020-02-26] MEDS ORDERED: OMEPRAZOLE 20 MG CAPSULE.DR PO SCH (10:00)
[2020-02-26] MEDS: ENOXAPARIN 40 MG/0.4 ML SQ SCH (12:23)
[2020-02-26 13:42] VITALS: BP 98/71
[2020-02-26 19:02] VITALS: BP 108/72
[2020-02-26] MEDS: TRAZODONE 150MG TABLET PO SCH (20:58)
[2020-02-26] MEDS: HYDROCORTISONE CRM 1%, 30GM TP PRN (21:01)
[2020-02-27 00:47] VITALS: BP 102/60
[2020-02-27] MEDS: OMEPRAZOLE 20 MG CAPSULE.DR PO SCH (05:38)
[2020-02-27 08:16] VITALS: BP 99/70
[2020-02-27] MEDS: MAGNESIUM OXIDE 400 MG TABLET PO SCH ×2 (08:25→19:52)
[2020-02-27] MEDS: POLYETHYLENE GLYCOL 17 GM PACKET PO SCH ×3 (08:25→19:52)
[2020-02-27] MEDS: FLUOXETINE HCL 20 MG CAPSULE PO SCH (08:25)
[2020-02-27] MEDS: ACETAMINOPHEN 325 MG TABLET PO PRN ×3 (08:25→19:52)
[2020-02-27] MEDS: MULTIVITAMIN 1 TABLET PO SCH (08:25)
[2020-02-27] MEDS: SENNA/DOCUSATE TABLET PO SCH ×2 (08:25→19:52)
[2020-02-27] MEDS: DIPHENHYDRAMINE 50 MG CAPSULE PO PRN (08:25)
[2020-02-27 12:32] VITALS: BP 102/69
[2020-02-27] MEDS: ENOXAPARIN 40 MG/0.4 ML SQ SCH (12:52)
[2020-02-27 19:43] VITALS: BP 104/66
[2020-02-27] MEDS: TRAZODONE 150MG TABLET PO SCH (19:52)
[2020-02-28] MEDS: OMEPRAZOLE 20 MG CAPSULE.DR PO SCH (06:39)
[2020-02-28 08:16] VITALS: BP 99/70
[2020-02-28] MEDS: MAGNESIUM OXIDE 400 MG TABLET PO SCH ×2 (08:33→20:14)
[2020-02-28] MEDS: DIPHENHYDRAMINE 50 MG CAPSULE PO PRN (08:33)
[2020-02-28] MEDS: FLUOXETINE HCL 20 MG CAPSULE PO SCH (08:33)
[2020-02-28] MEDS: SENNA/DOCUSATE TABLET PO SCH ×2 (08:33→20:14)
[2020-02-28] MEDS: MULTIVITAMIN 1 TABLET PO SCH (08:33)
[2020-02-28] MEDS: ACETAMINOPHEN 325 MG TABLET PO PRN ×2 (08:33→20:14)
[2020-02-28] MEDS: POLYETHYLENE GLYCOL 17 GM PACKET PO SCH ×3 (08:37→20:14)
[2020-02-28] MEDS: ENOXAPARIN 40 MG/0.4 ML SQ SCH (12:19)
[2020-02-28 13:06] VITALS: BP 99/67
[2020-02-28] MEDS: HYDROcodone/APAP 5/325 TABLET PO PRN (14:56)
[2020-02-28] MEDS: LIDODERM 5% PATCH TD SCH (16:48)
[2020-02-28] MEDS: GABAPENTIN 300 MG CAPSULE PO SCH ×2 (16:48→20:14)
[2020-02-28] MEDS: TRAZODONE 150MG TABLET PO SCH (20:14)
[2020-02-28 20:17] VITALS: BP 99/81
[2020-02-29] MEDS: OMEPRAZOLE 20 MG CAPSULE.DR PO SCH (05:55)
[2020-02-29 08:53] VITALS: BP 103/71
[2020-02-29 09:02] LABS: CREATININE 0.62 mg/dL (0.7-1.3)
[2020-02-29] MEDS: POLYETHYLENE GLYCOL 17 GM PACKET PO SCH ×4 (09:05→21:00)
[2020-02-29] MEDS: MAGNESIUM OXIDE 400 MG TABLET PO SCH ×2 (09:05→21:17)
[2020-02-29] MEDS: FLUOXETINE HCL 20 MG CAPSULE PO SCH (09:05)
[2020-02-29] MEDS: SENNA/DOCUSATE TABLET PO SCH ×2 (09:05→21:17)
[2020-02-29] MEDS: MULTIVITAMIN 1 TABLET PO SCH (09:05)
[2020-02-29] MEDS: GABAPENTIN 300 MG CAPSULE PO SCH ×3 (09:05→23:05)
[2020-02-29] MEDS: HYDROcodone/APAP 5/325 TABLET PO PRN ×2 (10:34→18:39)
[2020-02-29] MEDS: ENOXAPARIN 40 MG/0.4 ML SQ SCH (11:51)
[2020-02-29] MEDS: LIDODERM 5% PATCH TD SCH (11:53)
[2020-02-29 12:22] VITALS: BP 94/65
[2020-02-29 21:14] VITALS: BP 94/64
[2020-02-29] MEDS: TRAZODONE 150MG TABLET PO SCH (21:18)
[2020-02-29 22:09] VITALS: BP 92/68
[2020-03-01] MEDS: OMEPRAZOLE 20 MG CAPSULE.DR PO SCH (05:55)
[2020-03-01] MEDS: MAGNESIUM OXIDE 400 MG TABLET PO SCH ×2 (08:44→21:26)
[2020-03-01] MEDS: FLUOXETINE HCL 20 MG CAPSULE PO SCH (08:45)
[2020-03-01] MEDS: SENNA/DOCUSATE TABLET PO SCH ×2 (08:45→21:26)
[2020-03-01] MEDS: MULTIVITAMIN 1 TABLET PO SCH (08:45)
[2020-03-01] MEDS: GABAPENTIN 300 MG CAPSULE PO SCH ×3 (08:45→21:26)
[2020-03-01] MEDS: POLYETHYLENE GLYCOL 17 GM PACKET PO SCH ×3 (08:45→21:00)
[2020-03-01 08:50] VITALS: BP 93/65
[2020-03-01] MEDS: HYDROcodone/APAP 5/325 TABLET PO PRN (10:03)
[2020-03-01] MEDS: ENOXAPARIN 40 MG/0.4 ML SQ SCH (13:16)
[2020-03-01 15:02] VITALS: BP 102/74
[2020-03-01] MEDS: LIDODERM 5% PATCH TD SCH (15:06)
[2020-03-01 19:49] VITALS: BP 105/68
[2020-03-01] MEDS: TRAZODONE 150MG TABLET PO SCH (21:26)
[2020-03-02] MEDS: HYDROcodone/APAP 5/325 TABLET PO PRN ×2 (05:47→21:00)
[2020-03-02] MEDS: OMEPRAZOLE 20 MG CAPSULE.DR PO SCH (05:47)
[2020-03-02 07:38] VITALS: BP 85/59
[2020-03-02 07:46] VITALS: BP 94/64
[2020-03-02] MEDS: MAGNESIUM OXIDE 400 MG TABLET PO SCH ×2 (07:55→21:01)
[2020-03-02] MEDS: MULTIVITAMIN 1 TABLET PO SCH (07:55)
[2020-03-02] MEDS: FLUOXETINE HCL 20 MG CAPSULE PO SCH (07:55)
[2020-03-02] MEDS: SENNA/DOCUSATE TABLET PO SCH ×2 (07:55→21:01)
[2020-03-02] MEDS: GABAPENTIN 300 MG CAPSULE PO SCH ×3 (07:56→21:01)
[2020-03-02] MEDS: POLYETHYLENE GLYCOL 17 GM PACKET PO SCH ×3 (07:56→20:59)
[2020-03-02] MEDS: ENOXAPARIN 40 MG/0.4 ML SQ SCH (11:12)
[2020-03-02 13:02] VITALS: BP 100/70
[2020-03-02] MEDS: LIDODERM 5% PATCH TD SCH (15:10)
[2020-03-02] MEDS: ONDANSETRON 2MG/ML, 2ML IVPush PRN (16:31)
[2020-03-02] MEDS: CALCIUM CARBONATE 500 MG TAB.CHEW PO PRN (18:49)
[2020-03-02 19:33] VITALS: BP 105/65
[2020-03-02] MEDS: TRAZODONE 150MG TABLET PO SCH (21:01)
[2020-03-03] MEDS: OMEPRAZOLE 20 MG CAPSULE.DR PO SCH (05:31)
[2020-03-03 05:52] VITALS: BP 111/76
[2020-03-03 05:53] LABS: CREATININE 0.56 mg/dL (0.7-1.3)
[2020-03-03] MEDS: DIPHENHYDRAMINE 50 MG CAPSULE PO PRN (05:53)
[2020-03-03 07:33] VITALS: BP 108/71
[2020-03-03] MEDS: MAGNESIUM OXIDE 400 MG TABLET PO SCH ×2 (08:28→21:03)
[2020-03-03] MEDS: MULTIVITAMIN 1 TABLET PO SCH (08:28)
[2020-03-03] MEDS: FLUOXETINE HCL 20 MG CAPSULE PO SCH (08:28)
[2020-03-03] MEDS: POLYETHYLENE GLYCOL 17 GM PACKET PO SCH ×3 (08:28→21:00)
[2020-03-03] MEDS: GABAPENTIN 300 MG CAPSULE PO SCH ×3 (08:28→21:03)
[2020-03-03] MEDS: SENNA/DOCUSATE TABLET PO SCH ×2 (08:28→21:03)
[2020-03-03] MEDS: HYDROcodone/APAP 5/325 TABLET PO PRN ×2 (08:28→21:03)
[2020-03-03] MEDS: ENOXAPARIN 40 MG/0.4 ML SQ SCH (12:05)
[2020-03-03 13:47] VITALS: BP 101/72
[2020-03-03 15:17] VITALS: BP 100/66
[2020-03-03] MEDS: LIDODERM 5% PATCH TD SCH (15:45)
[2020-03-03 19:47] VITALS: BP 103/69
[2020-03-03] MEDS: TRAZODONE 150MG TABLET PO SCH (21:03)
[2020-03-04 05:52] VITALS: BP 100/77
[2020-03-04] MEDS: OMEPRAZOLE 20 MG CAPSULE.DR PO SCH (05:59)
[2020-03-04 07:41] VITALS: BP 103/69
[2020-03-04] MEDS: POLYETHYLENE GLYCOL 17 GM PACKET PO SCH ×3 (08:04→20:11)
[2020-03-04] MEDS: HYDROcodone/APAP 5/325 TABLET PO PRN ×2 (08:10→16:30)
[2020-03-04] MEDS: MULTIVITAMIN 1 TABLET PO SCH (08:10)
[2020-03-04] MEDS: FLUOXETINE HCL 20 MG CAPSULE PO SCH (08:10)
[2020-03-04] MEDS: GABAPENTIN 300 MG CAPSULE PO SCH ×3 (08:10→20:11)
[2020-03-04] MEDS: MAGNESIUM OXIDE 400 MG TABLET PO SCH ×2 (08:10→20:11)
[2020-03-04] MEDS: SENNA/DOCUSATE TABLET PO SCH ×2 (08:11→20:11)
[2020-03-04 08:31] LABS: ANION GAP 9 mmol/L (5-15); CALCIUM 9.1 mg/dL (8.5-10.1); CHLORIDE 100 mmol/L (98-107); CREATININE 0.66 mg/dL (0.7-1.3)
[2020-03-04 08:35] LABS: MEAN CORPUSCULAR HGB CONC 30.9 g/dL (33.2-36.2); MEAN PLATELET VOLUME 7.1 fL (7.4-10.4); RED BLOOD COUNT 3.44 x10^6/uL (4.38-5.82); RED CELL DISTRIBUTION WIDTH 20.1 % (9.4-14.8)
[2020-03-04 09:17] LABS: MD YES
[2020-03-04 09:19] LABS: BAND#(MANUAL) 0.65 x10^3/uL; BANDS%(MANUAL) 4 % (0-7); LYMPH#(MANUAL) 1.46 x10^3/uL (1-3.4); LYMPHS% (MANUAL) 9 % (22-44); MONOS#(MANUAL) 0.65 x10^3/uL (0.3-2.7); MONOS% (MANUAL) 4 % (2-9); SEG#(MANUAL) 13.45 x10^3/uL (1.8-6.8); SEGS% (MANUAL) 83 % (42-75)
[2020-03-04 09:21] LABS: MICROCYTOSIS 1+; PLATELET COUNT 307 x10^3/uL (130-400)
[2020-03-04 09:22] LABS: <PLT MORPHOLOGY> NORMAL PLT MORPH; HYPOCHROMIA 2+; OVALOCYTES 1+
[2020-03-04 09:23] LABS: <PLATELET ESTIMATE> ADEQUATE; ANISOCYTOSIS 2+
[2020-03-04] MEDS: LEVOFLOXACIN/PMX 750MG/150ML 150 ML IV SCH (10:13)
[2020-03-04 12:03] VITALS: BP 93/63
[2020-03-04] MEDS: CEFEPIME 2 GM in DEXTROSE 5% 100 ML IV SCH ×2 (12:12→20:11)
[2020-03-04] MEDS: ENOXAPARIN 40 MG/0.4 ML SQ SCH (12:12)
[2020-03-04] MEDS: DIPHENHYDRAMINE 50 MG CAPSULE PO PRN (13:59)
[2020-03-04] MEDS: LIDODERM 5% PATCH TD SCH (13:59)
[2020-03-04 19:46] VITALS: BP 99/63
[2020-03-04] MEDS: TRAZODONE 150MG TABLET PO SCH (20:11)
[2020-03-05] MEDS: CEFEPIME 2 GM in DEXTROSE 5% 100 ML IV SCH ×3 (04:14→20:19)
[2020-03-05] MEDS: OMEPRAZOLE 20 MG CAPSULE.DR PO SCH (05:17)
[2020-03-05 07:27] VITALS: BP 102/66
[2020-03-05] MEDS: MULTIVITAMIN 1 TABLET PO SCH (08:08)
[2020-03-05] MEDS: FLUOXETINE HCL 20 MG CAPSULE PO SCH (08:08)
[2020-03-05] MEDS: SENNA/DOCUSATE TABLET PO SCH ×2 (08:08→20:19)
[2020-03-05] MEDS: HYDROcodone/APAP 5/325 TABLET PO PRN ×2 (08:08→16:10)
[2020-03-05] MEDS: GABAPENTIN 300 MG CAPSULE PO SCH ×3 (08:08→20:19)
[2020-03-05] MEDS: MAGNESIUM OXIDE 400 MG TABLET PO SCH ×2 (08:08→20:19)
[2020-03-05] MEDS: POLYETHYLENE GLYCOL 17 GM PACKET PO SCH ×3 (08:10→20:19)
[2020-03-05] MEDS: LEVOFLOXACIN/PMX 750MG/150ML 150 ML IV SCH (09:25)
[2020-03-05] MEDS: ACETAMINOPHEN 325 MG TABLET PO PRN (12:23)
[2020-03-05] MEDS: ENOXAPARIN 40 MG/0.4 ML SQ SCH (12:24)
[2020-03-05] MEDS: DIPHENHYDRAMINE 50 MG CAPSULE PO PRN ×2 (12:29→19:25)
[2020-03-05 12:53] VITALS: BP 105/70
[2020-03-05] MEDS: FLUTICASONE/VILANTEROL 200-25MCG/INH INH SCH (16:09)
[2020-03-05] MEDS: LIDODERM 5% PATCH TD SCH (16:11)
[2020-03-05 19:20] VITALS: BP 91/60
[2020-03-05] MEDS: TRAZODONE 150MG TABLET PO SCH (20:19)
[2020-03-05] MEDS: ALBUTEROL-IPRATROPIUM MDI INH INH SCH (20:19)
[2020-03-06] MEDS: HYDROcodone/APAP 5/325 TABLET PO PRN ×3 (00:27→19:34)
[2020-03-06] MEDS: CEFEPIME 2 GM in DEXTROSE 5% 100 ML IV SCH ×3 (04:21→20:25)
[2020-03-06] MEDS: OMEPRAZOLE 20 MG CAPSULE.DR PO SCH (05:18)
[2020-03-06 07:36] LABS: CREATININE 0.65 mg/dL (0.7-1.3)
[2020-03-06 08:15] VITALS: BP 91/61
[2020-03-06] MEDS: POLYETHYLENE GLYCOL 17 GM PACKET PO SCH ×3 (09:00→20:26)
[2020-03-06] MEDS: ALBUTEROL-IPRATROPIUM MDI INH INH SCH ×2 (09:10→20:26)
[2020-03-06] MEDS: LEVOFLOXACIN/PMX 750MG/150ML 150 ML IV SCH (09:10)
[2020-03-06] MEDS: MULTIVITAMIN 1 TABLET PO SCH (09:11)
[2020-03-06] MEDS: FLUOXETINE HCL 20 MG CAPSULE PO SCH (09:11)
[2020-03-06] MEDS: SENNA/DOCUSATE TABLET PO SCH ×2 (09:13→20:25)
[2020-03-06] MEDS: GABAPENTIN 300 MG CAPSULE PO SCH ×3 (09:14→20:25)
[2020-03-06] MEDS: MAGNESIUM OXIDE 400 MG TABLET PO SCH ×2 (09:14→20:25)
[2020-03-06] MEDS: ENOXAPARIN 40 MG/0.4 ML SQ SCH (12:00)
[2020-03-06] MEDS: DIPHENHYDRAMINE 50 MG CAPSULE PO PRN (12:00)
[2020-03-06 12:35] VITALS: BP 97/61
[2020-03-06] MEDS: LIDODERM 5% PATCH TD SCH (15:12)
[2020-03-06] MEDS: FLUTICASONE/VILANTEROL 200-25MCG/INH INH SCH (17:11)
[2020-03-06] MEDS: ACETAMINOPHEN 325 MG TABLET PO PRN (17:12)
[2020-03-06 20:23] VITALS: BP 97/76
[2020-03-06] MEDS: TRAZODONE 150MG TABLET PO SCH (20:25)
[2020-03-07] MEDS: HYDROcodone/APAP 5/325 TABLET PO PRN ×3 (04:01→19:55)
[2020-03-07] MEDS: CEFEPIME 2 GM in DEXTROSE 5% 100 ML IV SCH ×3 (04:01→19:48)
[2020-03-07] MEDS: OMEPRAZOLE 20 MG CAPSULE.DR PO SCH (05:32)
[2020-03-07 08:55] VITALS: BP 109/72
[2020-03-07] MEDS: POLYETHYLENE GLYCOL 17 GM PACKET PO SCH ×4 (09:00→21:16)
[2020-03-07] MEDS: LEVOFLOXACIN/PMX 750MG/150ML 150 ML IV SCH (09:29)
[2020-03-07] MEDS: GABAPENTIN 300 MG CAPSULE PO SCH ×3 (09:30→21:16)
[2020-03-07] MEDS: SENNA/DOCUSATE TABLET PO SCH ×2 (09:30→21:16)
[2020-03-07] MEDS: MAGNESIUM OXIDE 400 MG TABLET PO SCH ×2 (09:30→21:16)
[2020-03-07] MEDS: FLUOXETINE HCL 20 MG CAPSULE PO SCH (09:30)
[2020-03-07] MEDS: MULTIVITAMIN 1 TABLET PO SCH (09:30)
[2020-03-07] MEDS: ALBUTEROL-IPRATROPIUM MDI INH INH SCH ×2 (09:36→21:19)
[2020-03-07] MEDS: DIPHENHYDRAMINE 50 MG CAPSULE PO PRN ×2 (09:36→18:12)
[2020-03-07 10:22] LABS: BASOPHILS % (AUTO) 1 % (0-1); EOSINOPHILS % (AUTO) 2 % (1-7); LYMPHOCYTES % (AUTO) 22 % (22-44); MEAN CORPUSCULAR HEMOGLOBIN 24.3 pg (27.5-34.5); MEAN CORPUSCULAR HGB CONC 31.7 g/dL (33.2-36.2); MEAN PLATELET VOLUME 7.1 fL (7.4-10.4); MONOCYTES % (AUTO) 10 % (2-9); NEUTROPHILS % (AUTO) 65 % (42-75); PLATELET COUNT 338 x10^3/uL (130-400); RED BLOOD COUNT 3.29 x10^6/uL (4.38-5.82); RED CELL DISTRIBUTION WIDTH 20.8 % (9.4-14.8)
[2020-03-07 10:48] LABS: MD MORPH REVIEW ONLY
[2020-03-07 10:49] LABS: <PLATELET ESTIMATE> ADEQUATE; ANISOCYTOSIS 1+; HYPOCHROMIA 1+; MICROCYTOSIS 1+; OVALOCYTES 1+; TEAR DROPS 1+
[2020-03-07 10:50] LABS: <PLT MORPHOLOGY> NORMAL PLT MORPH
[2020-03-07] MEDS: ENOXAPARIN 40 MG/0.4 ML SQ SCH (12:00)
[2020-03-07 12:16] VITALS: BP 91/60
[2020-03-07] MEDS: LIDODERM 5% PATCH TD SCH (15:47)
[2020-03-07] MEDS: FLUTICASONE/VILANTEROL 200-25MCG/INH INH SCH (15:47)
[2020-03-07] MEDS: ACETAMINOPHEN 325 MG TABLET PO PRN (18:12)
[2020-03-07 19:04] VITALS: BP 101/69
[2020-03-07] MEDS: TRAZODONE 150MG TABLET PO SCH (21:16)
[2020-03-08] MEDS: HYDROcodone/APAP 5/325 TABLET PO PRN ×3 (04:01→22:04)
[2020-03-08] MEDS: CEFEPIME 2 GM in DEXTROSE 5% 100 ML IV SCH ×3 (04:01→21:54)
[2020-03-08] MEDS: OMEPRAZOLE 20 MG CAPSULE.DR PO SCH (05:46)
[2020-03-08 07:38] VITALS: BP 100/67
[2020-03-08] MEDS: IRON SUCROSE COMPLEX 100MG/5ML IV SCH (08:52)
[2020-03-08] MEDS: GABAPENTIN 300 MG CAPSULE PO SCH ×3 (08:52→21:53)
[2020-03-08] MEDS: ALBUTEROL-IPRATROPIUM MDI INH INH SCH ×2 (08:53→21:00)
[2020-03-08] MEDS: SENNA/DOCUSATE TABLET PO SCH ×2 (08:53→21:53)
[2020-03-08] MEDS: MULTIVITAMIN 1 TABLET PO SCH (08:53)
[2020-03-08] MEDS: FLUOXETINE HCL 20 MG CAPSULE PO SCH (08:53)
[2020-03-08] MEDS: MAGNESIUM OXIDE 400 MG TABLET PO SCH ×2 (08:53→21:53)
[2020-03-08] MEDS: POLYETHYLENE GLYCOL 17 GM PACKET PO SCH ×3 (08:53→21:00)
[2020-03-08] MEDS: LEVOFLOXACIN/PMX 750MG/150ML 150 ML IV SCH (08:54)
[2020-03-08 12:30] VITALS: BP 100/68
[2020-03-08] MEDS: ENOXAPARIN 40 MG/0.4 ML SQ SCH (12:42)
[2020-03-08] MEDS: FLUTICASONE/VILANTEROL 200-25MCG/INH INH SCH (17:19)
[2020-03-08] MEDS: LIDODERM 5% PATCH TD SCH (17:19)
[2020-03-08] MEDS: DIPHENHYDRAMINE 50 MG CAPSULE PO PRN (17:19)
[2020-03-08 18:51] VITALS: BP 101/69
[2020-03-08] MEDS: TRAZODONE 150MG TABLET PO SCH (21:53)
[2020-03-09] MEDS: CEFEPIME 2 GM in DEXTROSE 5% 100 ML IV SCH ×3 (00:38→20:33)
[2020-03-09 02:00] VITALS: BP 100/67
[2020-03-09 05:48] LABS: CREATININE 0.69 mg/dL (0.7-1.3)
[2020-03-09] MEDS: OMEPRAZOLE 20 MG CAPSULE.DR PO SCH (06:06)
[2020-03-09 07:20] VITALS: BP 96/68
[2020-03-09] MEDS: POLYETHYLENE GLYCOL 17 GM PACKET PO SCH ×3 (09:00→21:18)
[2020-03-09] MEDS: ALBUTEROL-IPRATROPIUM MDI INH INH SCH ×2 (09:00→21:21)
[2020-03-09] MEDS: IRON SUCROSE COMPLEX 100MG/5ML IV SCH (09:25)
[2020-03-09] MEDS: LEVOFLOXACIN/PMX 750MG/150ML 150 ML IV SCH (09:25)
[2020-03-09] MEDS: MAGNESIUM OXIDE 400 MG TABLET PO SCH ×2 (09:26→21:21)
[2020-03-09] MEDS: MULTIVITAMIN 1 TABLET PO SCH (09:26)
[2020-03-09] MEDS: SENNA/DOCUSATE TABLET PO SCH ×2 (09:26→21:18)
[2020-03-09] MEDS: GABAPENTIN 300 MG CAPSULE PO SCH ×3 (09:26→21:21)
[2020-03-09] MEDS: FLUOXETINE HCL 20 MG CAPSULE PO SCH (09:26)
[2020-03-09] MEDS: HYDROcodone/APAP 5/325 TABLET PO PRN ×2 (09:33→18:45)
[2020-03-09] MEDS: ENOXAPARIN 40 MG/0.4 ML SQ SCH (12:00)
[2020-03-09] MEDS: ACETAMINOPHEN 325 MG TABLET PO PRN (14:12)
[2020-03-09 15:45] VITALS: BP 100/64
[2020-03-09] MEDS: FLUTICASONE/VILANTEROL 200-25MCG/INH INH SCH (16:57)
[2020-03-09] MEDS: LIDODERM 5% PATCH TD SCH (16:58)
[2020-03-09 19:18] VITALS: BP 100/66
[2020-03-09] MEDS: TRAZODONE 150MG TABLET PO SCH (21:21)
[2020-03-09] MEDS: DIPHENHYDRAMINE 50 MG CAPSULE PO PRN (21:25)
[2020-03-10] MEDS: CEFEPIME 2 GM in DEXTROSE 5% 100 ML IV SCH ×3 (04:52→18:16)
[2020-03-10] MEDS: OMEPRAZOLE 20 MG CAPSULE.DR PO SCH (04:52)
[2020-03-10] MEDS: HYDROcodone/APAP 5/325 TABLET PO PRN ×2 (04:55→18:16)
[2020-03-10 07:14] VITALS: BP 93/58
[2020-03-10] MEDS: POLYETHYLENE GLYCOL 17 GM PACKET PO SCH ×3 (09:00→20:59)
[2020-03-10] MEDS ORDERED: LEVOFLOXACIN/PMX 750MG/150ML 150 ML IV SCH (09:30)
[2020-03-10] MEDS: FLUOXETINE HCL 20 MG CAPSULE PO SCH (09:46)
[2020-03-10] MEDS: MAGNESIUM OXIDE 400 MG TABLET PO SCH ×2 (09:46→21:16)
[2020-03-10] MEDS: GABAPENTIN 300 MG CAPSULE PO SCH (09:46)
[2020-03-10] MEDS: SENNA/DOCUSATE TABLET PO SCH ×2 (09:46→21:15)
[2020-03-10] MEDS: ALBUTEROL-IPRATROPIUM MDI INH INH SCH ×2 (09:46→21:16)
[2020-03-10] MEDS: MULTIVITAMIN 1 TABLET PO SCH (09:46)
[2020-03-10] MEDS: IRON SUCROSE COMPLEX 100MG/5ML IV SCH (09:46)
[2020-03-10] MEDS: ENOXAPARIN 40 MG/0.4 ML SQ SCH (11:19)
[2020-03-10] MEDS: ACETAMINOPHEN 325 MG TABLET PO PRN (12:43)
[2020-03-10 14:45] VITALS: BP 98/71
[2020-03-10] MEDS ORDERED: FUROSEMIDE 40 MG/4 ML IV ONE (15:00)
[2020-03-10] MEDS: GABAPENTIN 400 MG CAPSULE PO SCH ×2 (15:45→21:15)
[2020-03-10] MEDS: LIDODERM 5% PATCH TD SCH (15:45)
[2020-03-10] MEDS: FLUTICASONE/VILANTEROL 200-25MCG/INH INH SCH (15:45)
[2020-03-10 20:23] VITALS: BP 102/69
[2020-03-10] MEDS: TRAZODONE 150MG TABLET PO SCH (21:15)
[2020-03-10] MEDS: DIPHENHYDRAMINE 50 MG CAPSULE PO PRN (22:37)
[2020-03-11 00:17] VITALS: BP 98/56
[2020-03-11] MEDS: CEFEPIME 2 GM in DEXTROSE 5% 100 ML IV SCH (03:48)
[2020-03-11] MEDS: OMEPRAZOLE 20 MG CAPSULE.DR PO SCH (05:48)
[2020-03-11 08:26] VITALS: BP 116/69
[2020-03-11] MEDS: ALBUTEROL-IPRATROPIUM MDI INH INH SCH ×2 (08:41→20:24)
[2020-03-11] MEDS: GABAPENTIN 400 MG CAPSULE PO SCH ×3 (08:41→20:23)
[2020-03-11] MEDS: IRON SUCROSE COMPLEX 100MG/5ML IV SCH (08:41)
[2020-03-11] MEDS: MULTIVITAMIN 1 TABLET PO SCH (08:42)
[2020-03-11] MEDS: SENNA/DOCUSATE TABLET PO SCH ×2 (08:42→20:34)
[2020-03-11] MEDS: FLUOXETINE HCL 20 MG CAPSULE PO SCH (08:42)
[2020-03-11] MEDS: POLYETHYLENE GLYCOL 17 GM PACKET PO SCH ×3 (08:42→20:25)
[2020-03-11] MEDS: MAGNESIUM OXIDE 400 MG TABLET PO SCH ×2 (08:42→20:23)
[2020-03-11] MEDS: HYDROcodone/APAP 5/325 TABLET PO PRN ×2 (08:46→20:34)
[2020-03-11] MEDS: ENOXAPARIN 40 MG/0.4 ML SQ SCH (12:07)
[2020-03-11] MEDS: ACETAMINOPHEN 325 MG TABLET PO PRN (12:19)
[2020-03-11] MEDS: ONDANSETRON 2MG/ML, 2ML IVPush PRN (13:13)
[2020-03-11] MEDS: LIDODERM 5% PATCH TD SCH (14:23)
[2020-03-11 14:36] VITALS: BP 91/63
[2020-03-11] MEDS: FLUTICASONE/VILANTEROL 200-25MCG/INH INH SCH (15:49)
[2020-03-11 19:06] VITALS: BP 98/69
[2020-03-11] MEDS: TRAZODONE 150MG TABLET PO SCH (20:23)
[2020-03-12] MEDS: OMEPRAZOLE 20 MG CAPSULE.DR PO SCH (05:29)
[2020-03-12 07:25] VITALS: BP 100/65
[2020-03-12] MEDS: HYDROcodone/APAP 5/325 TABLET PO PRN ×2 (07:54→20:42)
[2020-03-12] MEDS: IRON SUCROSE COMPLEX 100MG/5ML IV SCH (07:55)
[2020-03-12] MEDS: FLUOXETINE HCL 20 MG CAPSULE PO SCH (07:55)
[2020-03-12] MEDS: ALBUTEROL-IPRATROPIUM MDI INH INH SCH ×2 (07:55→20:43)
[2020-03-12] MEDS: ONDANSETRON 2MG/ML, 2ML IVPush PRN (07:55)
[2020-03-12] MEDS: MULTIVITAMIN 1 TABLET PO SCH (07:55)
[2020-03-12] MEDS: MAGNESIUM OXIDE 400 MG TABLET PO SCH ×2 (07:56→20:34)
[2020-03-12] MEDS: POLYETHYLENE GLYCOL 17 GM PACKET PO SCH ×3 (07:56→20:38)
[2020-03-12] MEDS: GABAPENTIN 400 MG CAPSULE PO SCH ×3 (07:56→20:35)
[2020-03-12] MEDS: SENNA/DOCUSATE TABLET PO SCH ×2 (07:57→20:35)
[2020-03-12 09:35] LABS: CREATININE 0.72 mg/dL (0.7-1.3)
[2020-03-12] MEDS: ENOXAPARIN 40 MG/0.4 ML SQ SCH (12:12)
[2020-03-12 15:02] VITALS: BP 97/63
[2020-03-12] MEDS: FLUTICASONE/VILANTEROL 200-25MCG/INH INH SCH (16:00)
[2020-03-12] MEDS: DIPHENHYDRAMINE 50 MG CAPSULE PO PRN (16:08)
[2020-03-12] MEDS: LIDODERM 5% PATCH TD SCH (16:09)
[2020-03-12] MEDS ORDERED: GABAPENTIN 100 MG CAPSULE ONE (20:27)
[2020-03-12] MEDS ORDERED: GABAPENTIN 300 MG CAPSULE ONE (20:28)
[2020-03-12 20:33] VITALS: BP 98/63
[2020-03-12] MEDS: TRAZODONE 150MG TABLET PO SCH (20:35)
[2020-03-13] MEDS: OMEPRAZOLE 20 MG CAPSULE.DR PO SCH (05:23)
[2020-03-13 07:33] VITALS: BP 95/63
[2020-03-13] MEDS: SENNA/DOCUSATE TABLET PO SCH ×2 (09:00→21:00)
[2020-03-13] MEDS: MULTIVITAMIN 1 TABLET PO SCH (09:37)
[2020-03-13] MEDS: FLUOXETINE HCL 20 MG CAPSULE PO SCH (09:37)
[2020-03-13] MEDS: POLYETHYLENE GLYCOL 17 GM PACKET PO SCH ×3 (09:37→21:00)
[2020-03-13] MEDS: GABAPENTIN 400 MG CAPSULE PO SCH ×3 (09:37→21:19)
[2020-03-13 09:38] LABS: BASOPHILS % (AUTO) 1 % (0-1); EOSINOPHILS % (AUTO) 1 % (1-7); LYMPHOCYTES % (AUTO) 16 % (22-44); MEAN CORPUSCULAR HEMOGLOBIN 24.5 pg (27.5-34.5); MEAN PLATELET VOLUME 7.1 fL (7.4-10.4); MONOCYTES % (AUTO) 9 % (2-9); NEUTROPHILS % (AUTO) 73 % (42-75); PLATELET COUNT 290 x10^3/uL (130-400); RED BLOOD COUNT 3.34 x10^6/uL (4.38-5.82); RED CELL DISTRIBUTION WIDTH 22.9 % (9.4-14.8)
[2020-03-13] MEDS: MAGNESIUM OXIDE 400 MG TABLET PO SCH ×2 (09:38→21:19)
[2020-03-13 09:41] LABS: MD NO
[2020-03-13] MEDS: HYDROcodone/APAP 5/325 TABLET PO PRN ×2 (09:45→21:19)
[2020-03-13] MEDS: ALBUTEROL-IPRATROPIUM MDI INH INH SCH ×2 (09:45→21:18)
[2020-03-13] MEDS: ENOXAPARIN 40 MG/0.4 ML SQ SCH (12:00)
[2020-03-13 13:07] VITALS: BP 103/69
[2020-03-13] MEDS: LIDODERM 5% PATCH TD SCH (14:51)
[2020-03-13] MEDS: FLUTICASONE/VILANTEROL 200-25MCG/INH INH SCH (17:13)
[2020-03-13 20:34] VITALS: BP 105/70
[2020-03-13] MEDS: TRAZODONE 150MG TABLET PO SCH (21:19)
[2020-03-14] MEDS: OMEPRAZOLE 20 MG CAPSULE.DR PO SCH (05:57)
[2020-03-14 07:45] VITALS: BP 108/61
[2020-03-14] MEDS: ALBUTEROL-IPRATROPIUM MDI INH INH SCH ×2 (08:10→20:39)
[2020-03-14] MEDS: FLUOXETINE HCL 20 MG CAPSULE PO SCH (08:11)
[2020-03-14] MEDS: SENNA/DOCUSATE TABLET PO SCH ×2 (08:11→20:39)
[2020-03-14] MEDS: MAGNESIUM OXIDE 400 MG TABLET PO SCH ×2 (08:11→20:43)
[2020-03-14] MEDS: GABAPENTIN 400 MG CAPSULE PO SCH ×3 (08:11→20:40)
[2020-03-14] MEDS: MULTIVITAMIN 1 TABLET PO SCH (08:11)
[2020-03-14] MEDS: POLYETHYLENE GLYCOL 17 GM PACKET PO SCH ×3 (08:12→20:38)
[2020-03-14] MEDS: HYDROcodone/APAP 5/325 TABLET PO PRN ×2 (08:57→20:41)
[2020-03-14] MEDS: ENOXAPARIN 40 MG/0.4 ML SQ SCH (12:42)
[2020-03-14 13:36] VITALS: BP 100/65
[2020-03-14] MEDS: LIDODERM 5% PATCH TD SCH (15:24)
[2020-03-14] MEDS: FLUTICASONE/VILANTEROL 200-25MCG/INH INH SCH (15:24)
[2020-03-14 20:12] VITALS: BP 102/70
[2020-03-14] MEDS: TRAZODONE 150MG TABLET PO SCH (20:39)
[2020-03-15] MEDS: HYDROcodone/APAP 5/325 TABLET PO PRN ×2 (05:57→20:19)
[2020-03-15] MEDS: OMEPRAZOLE 20 MG CAPSULE.DR PO SCH (05:57)
[2020-03-15 06:27] VITALS: BP 98/57
[2020-03-15 07:30] LABS: CREATININE 0.73 mg/dL (0.7-1.3)
[2020-03-15] MEDS: ALBUTEROL-IPRATROPIUM MDI INH INH SCH ×2 (07:38→20:18)
[2020-03-15] MEDS: GABAPENTIN 400 MG CAPSULE PO SCH ×3 (07:38→20:18)
[2020-03-15] MEDS: SENNA/DOCUSATE TABLET PO SCH ×2 (07:38→20:18)
[2020-03-15] MEDS: FLUOXETINE HCL 20 MG CAPSULE PO SCH (07:38)
[2020-03-15] MEDS: MAGNESIUM OXIDE 400 MG TABLET PO SCH ×2 (07:38→20:19)
[2020-03-15] MEDS: MULTIVITAMIN 1 TABLET PO SCH (07:38)
[2020-03-15] MEDS: POLYETHYLENE GLYCOL 17 GM PACKET PO SCH ×3 (07:40→20:19)
[2020-03-15] MEDS: ENOXAPARIN 40 MG/0.4 ML SQ SCH (12:15)
[2020-03-15 13:22] VITALS: BP 100/66
[2020-03-15] MEDS: FLUTICASONE/VILANTEROL 200-25MCG/INH INH SCH (16:09)
[2020-03-15] MEDS: LIDODERM 5% PATCH TD SCH (16:10)
[2020-03-15 20:17] VITALS: BP 101/68
[2020-03-15] MEDS: TRAZODONE 150MG TABLET PO SCH (20:19)
[2020-03-15] MEDS: GUAIFENESIN ER 600 MG TABLET PO SCH ×2 (20:19→20:21)
[2020-03-16] MEDS: OMEPRAZOLE 20 MG CAPSULE.DR PO SCH (05:59)
[2020-03-16 07:02] VITALS: BP 98/60
[2020-03-16] MEDS: POLYETHYLENE GLYCOL 17 GM PACKET PO SCH ×3 (09:00→21:00)
[2020-03-16] MEDS: GUAIFENESIN ER 600 MG TABLET PO SCH ×2 (09:00→21:16)
[2020-03-16] MEDS: MAGNESIUM OXIDE 400 MG TABLET PO SCH ×2 (09:19→21:15)
[2020-03-16] MEDS: GABAPENTIN 400 MG CAPSULE PO SCH ×3 (09:19→21:15)
[2020-03-16] MEDS: MULTIVITAMIN 1 TABLET PO SCH (09:19)
[2020-03-16] MEDS: FLUOXETINE HCL 20 MG CAPSULE PO SCH (09:19)
[2020-03-16] MEDS: HYDROcodone/APAP 5/325 TABLET PO PRN ×2 (09:19→21:15)
[2020-03-16] MEDS: SENNA/DOCUSATE TABLET PO SCH ×2 (09:20→21:15)
[2020-03-16] MEDS: ALBUTEROL-IPRATROPIUM MDI INH INH SCH ×2 (09:20→21:19)
[2020-03-16] MEDS: ENOXAPARIN 40 MG/0.4 ML SQ SCH (12:22)
[2020-03-16 13:31] VITALS: BP 120/73
[2020-03-16] MEDS: DIPHENHYDRAMINE 50 MG CAPSULE PO PRN ×2 (13:57→21:19)
[2020-03-16] MEDS: LIDODERM 5% PATCH TD SCH (13:58)
[2020-03-16] MEDS: FLUTICASONE/VILANTEROL 200-25MCG/INH INH SCH (15:13)
[2020-03-16 19:59] VITALS: BP 108/72
[2020-03-16] MEDS: TRAZODONE 150MG TABLET PO SCH (21:15)
[2020-03-17] MEDS: OMEPRAZOLE 20 MG CAPSULE.DR PO SCH (06:01)
[2020-03-17 06:54] VITALS: BP 100/56
[2020-03-17] MEDS: POLYETHYLENE GLYCOL 17 GM PACKET PO SCH ×3 (08:44→21:00)
[2020-03-17] MEDS: ALBUTEROL-IPRATROPIUM MDI INH INH SCH ×2 (08:48→21:26)
[2020-03-17] MEDS: FLUOXETINE HCL 20 MG CAPSULE PO SCH (08:49)
[2020-03-17] MEDS: MAGNESIUM OXIDE 400 MG TABLET PO SCH ×2 (08:49→21:26)
[2020-03-17] MEDS: GABAPENTIN 400 MG CAPSULE PO SCH ×3 (08:49→21:26)
[2020-03-17] MEDS: SENNA/DOCUSATE TABLET PO SCH ×2 (08:49→21:25)
[2020-03-17] MEDS: HYDROcodone/APAP 5/325 TABLET PO PRN ×2 (08:49→21:25)
[2020-03-17] MEDS: MULTIVITAMIN 1 TABLET PO SCH (08:49)
[2020-03-17] MEDS: GUAIFENESIN ER 600 MG TABLET PO SCH ×2 (08:49→21:26)
[2020-03-17 13:30] VITALS: BP 109/74
[2020-03-17] MEDS: LIDODERM 5% PATCH TD SCH (15:54)
[2020-03-17] MEDS: FLUTICASONE/VILANTEROL 200-25MCG/INH INH SCH (15:55)
[2020-03-17] MEDS: ENOXAPARIN 40 MG/0.4 ML SQ SCH (15:55)
[2020-03-17 19:51] VITALS: BP 105/70
[2020-03-17] MEDS: TRAZODONE 150MG TABLET PO SCH (21:26)
[2020-03-18] MEDS: OMEPRAZOLE 20 MG CAPSULE.DR PO SCH (05:14)
[2020-03-18 06:28] LABS: CREATININE 0.69 mg/dL (0.7-1.3)
[2020-03-18 06:35] VITALS: BP 104/68
[2020-03-18] MEDS: POLYETHYLENE GLYCOL 17 GM PACKET PO SCH (06:57)
[2020-03-18] MEDS: GABAPENTIN 400 MG CAPSULE PO SCH (07:23)
[2020-03-18] MEDS: SENNA/DOCUSATE TABLET PO SCH (07:24)
[2020-03-18] MEDS: HYDROcodone/APAP 5/325 TABLET PO PRN (07:24)
[2020-03-18] MEDS: GUAIFENESIN ER 600 MG TABLET PO SCH (07:24)
[2020-03-18] MEDS: FLUOXETINE HCL 20 MG CAPSULE PO SCH (07:24)
[2020-03-18] MEDS: MAGNESIUM OXIDE 400 MG TABLET PO SCH (07:24)
[2020-03-18] MEDS: MULTIVITAMIN 1 TABLET PO SCH (07:24)
[2020-03-18] MEDS: ALBUTEROL-IPRATROPIUM MDI INH INH SCH (07:26)
[2020-03-18] MEDS ORDERED: GABA-827 PO (07:48)
[2020-03-18] MEDS ORDERED: FLUT1BLS INH (07:48)
[2020-03-18] MEDS ORDERED: FLUO20CA23 PO (07:48)
== END 2020-03-18 09:00 | disposition home or self-care (01) | DRG 137 ==
LOC: ED 16:27 → EDIP 01-25 00:34 → 5SO 01-25 03:43 → 4WST 01-27 15:20 → 3N 01-30 21:23 → DCLOUNGE 03-18 08:53
PROVIDERS: ADMIT Family Medicine; ATTEND Hospitalist
PROC: 0T9B70Z Drainage of Bladder with Drainage Device, Via Natural or Artificial Opening (ICD-10-PCS; principal; 2020-01-26)
DX: J69.0 Pneumonitis due to inhalation of food and vomit (principal); J96.21 Acute and chronic respiratory failure with hypoxia; R62.7 Adult failure to thrive; B86 Scabies; D63.8 Anemia in other chronic diseases classified elsewhere; D69.6 Thrombocytopenia, unspecified; E11.9 Type 2 diabetes mellitus without complications; E43 Unspecified severe protein-calorie malnutrition; E83.42 Hypomagnesemia; Z20.822 Contact with and (suspected) exposure to COVID-19; Z66 Do not resuscitate; E83.51 Hypocalcemia; J44.1 Chronic obstructive pulmonary disease with (acute) exacerbation; E87.1 Hypo-osmolality and hyponatremia; Z99.81 Dependence on supplemental oxygen; E87.6 Hypokalemia; F10.229 Alcohol dependence with intoxication, unspecified; F10.239 Alcohol dependence with withdrawal, unspecified; I10 Essential (primary) hypertension; I71.2 Thoracic aortic aneurysm, without rupture; M54.30 Sciatica, unspecified side; M75.102 Unspecified rotator cuff tear or rupture of left shoulder, not specified as traumatic; Z60.2 Problems related to living alone; K58.1 Irritable bowel syndrome with constipation; K58.0 Irritable bowel syndrome with diarrhea; K44.9 Diaphragmatic hernia without obstruction or gangrene; K22.8 Other specified diseases of esophagus; R74.01 Elevation of levels of liver transaminase levels; Y95 Nosocomial condition; J18.9 Pneumonia, unspecified organism; Z68.23 Body mass index [BMI] 23.0-23.9, adult; Z88.0 Allergy status to penicillin; Z79.899 Other long term (current) drug therapy; Z79.84 Long term (current) use of oral hypoglycemic drugs; Z90.49 Acquired absence of other specified parts of digestive tract; Z85.118 Personal history of other malignant neoplasm of bronchus and lung; Z88.5 Allergy status to narcotic agent; Z59.0 Homelessness
CPT/HCPCS: 36415; 36600; 71045; 71275; 80048; 80053; 80299; 80320; 80329; 81001; 81003; 82140; 82274; 82565; 82803; 83605; 83735; 83880; 83930; 84100; 84145; 84588; 85025; 85610; 85730; 86140; 86480; 87040; 87070; 87147; 87205; 93005; 93308; 93321; 93325; 96374; 96375; 99285; G0378; J0456; J0696; J1335; J1644; J1650; J1756; J1940; J1956; J2405; J3411; J3475; J3480; J7042; Q0162; Q9967; C9113; G0480; J2060; J2920; J7030; J7040; J7050; U0003

== ENCOUNTER 2020-05-21 19:19 | Emergency (ER) | payer MEDICAID ==
[~2020-05-21] VITALS: Ht 162.6 cm; Wt 55.0 kg
[~2020-05-21 19:19] MED LIST: FLUO20CA23 PO; FLUO20TA25 PO; FLUT1BLS INH; GABA-827 PO
--- NOTE | 2020-05-21 19:32 | NUR ---
PT BIB [facility] FOR ETOH INTOXICATION AND BEING UNABLE TO AMBULATE. PT WANTS TO DETOX. PT HAD A PINT OF WHISKEY AND LAST DRINK WAS 2 HRS AGO. VSS. PT PLACED ON PULSE OX AND BP MONITORING. PT HAS NO OTHER NEEDS AT THIS TIME. CALL LIGHT IN REACH
--- NOTE | 2020-05-21 20:59 | NUR ---
pt resting. even rise and fall of chest observed. Vss. pt has no needs at this time. call light in reach
[2020-05-21 22:07] VITALS: BP 99/76
--- NOTE | 2020-05-21 22:28 | NUR ---
PT AMBULATES WITH A STEADY GAIT USING WALKER. VSS. PT GIVEN VOUCHER TO [facility] FOR DETOX.
== END 2020-05-21 22:33 | disposition home or self-care (01) ==
LOC: ED 20:57
DX: F10.220 Alcohol dependence with intoxication, uncomplicated (principal); R00.0 Tachycardia, unspecified; Z59.0 Homelessness; F17.210 Nicotine dependence, cigarettes, uncomplicated; I10 Essential (primary) hypertension; E11.649 Type 2 diabetes mellitus with hypoglycemia without coma; Y90.9 Presence of alcohol in blood, level not specified
CPT/HCPCS: 99283; 99406

== ENCOUNTER 2020-05-23 17:28 | Emergency (ER) | payer MEDICAID ==
[~2020-05-23] VITALS: Ht 160 cm; Wt 44.0 kg
--- NOTE | 2020-05-23 17:50 | NUR ---
BIB [facility]. PT WANTS TO DETOX. PER [facility] PT HAS HAD 1 1/2 PINTS OF ETOH TODAY. WINDOWS SOFTWARE ENGINEER [facility]: PIV 20G LEFT HAND, 100ML NS, FOR LOW BP. LAST [facility] BP 116/70 PT CHANGED INTO GOWN, CONNECTED TO MONITORING. PT OXYGEN 87% RA, PT PLACED ON OXYGEN 2L VIA NC. IVF THAT [facility] STARTED CONTINUING. CALL LIGHT IN REACH. WARM BLANKET PROVIDED. PT A&O X4.
[2020-05-23] MEDS ORDERED: ONDANSETRON 2MG/ML, 2ML ONE (18:30)
--- NOTE | 2020-05-23 18:45 | NUR ---
PER ERMD, PT TO BE MTF
[2020-05-23] MEDS ORDERED: ONDANSETRON 2MG/ML, 2ML IVPush ONE (19:00)
[2020-05-23] MEDS ORDERED: SODIUM CHLORIDE 0.9% 1,000ML IVBOLUS ONE (20:00)
--- NOTE | 2020-05-23 20:00 | NUR ---
EMMIED OK TO FINISH IVF STARTED BY TEAGAN, NO NEED FOR SECOND LITER AT THIS TIME.
--- NOTE | 2020-05-23 20:41 | NUR ---
SPOKE WITH BAO, WEEKEND NIGHT NURSE, AT [facility]. BAO STATES PT WAS DC TODAY, AND PT IS NOT ALLOWED TO RETURN D/T: PRESSURE ULCERS AND INCONTINENT OF STOOL.
--- NOTE | 2020-05-23 21:08 | NUR ---
PT SLEEPING ON GURNEY. RESP EVEN AND UNLABORED. PT CONNECTED TO MONITORING. CALL LIGHT IN REACH.
--- NOTE | 2020-05-23 22:40 | NUR ---
PT AMBULATED TO DC WITH STEADY GAIT AND OWN WALKER. PT REFUSED TO ACCEPT TAXI VOUCHER. "I'LL CALL MY OWN TAXI".
[2020-05-23 22:41] VITALS: BP 110/75
== END 2020-05-23 22:42 | disposition home or self-care (01) ==
LOC: ED 20:38
DX: K29.20 Alcoholic gastritis without bleeding (principal); F10.120 Alcohol abuse with intoxication, uncomplicated; R11.2 Nausea with vomiting, unspecified; I10 Essential (primary) hypertension; E11.9 Type 2 diabetes mellitus without complications; F17.200 Nicotine dependence, unspecified, uncomplicated; Y90.0 Blood alcohol level of less than 20 mg/100 ml
CPT/HCPCS: 96374; 99283; J2405